=== PATIENT | male | born 1985 | race Caucasian/White ===

== ENCOUNTER 2016-12-09 00:05 | Emergency (ER) | payer OTHER ==
[2016-12-09] MEDS ORDERED: SODIUM CHLORIDE 0.9% 1,000 ML IV STA (00:42)
[2016-12-09] MEDS ORDERED: ONDANSETRON 4 MG/2 ML VIAL IVP STA (00:42)
[2016-12-09] MEDS ORDERED: MORPHINE SULFATE 2 MG/ML SYRINGE IVP STA (00:42)
--- NOTE | 2016-12-09 00:49 | ED ---
Abdominal Pain HPI - General Chief Complaint: Abdominal Pain Stated Complaint: right side pain Time Seen by Provider: 12/09/16 00:16 Source: patient, RN notes reviewed Mode of arrival: ambulatory Limitations: no limitations - History of Present Illness Initial Comments: Patient is a 30-year-old male chief complaint of sudden onset of right sided abdominal pain. Patient reports that he did feel some pain earlier this morning but to take one pain medication. Patient reports themedications wearing off this pain is starting again. Patient states that it is a gnawing sensation. He also reports that he had a chest x-ray from his primary care provider completed earlier this week. Due to the results of this chest x-ray and he stated that there was a mass in his epigastric and cardiac region that needs to have a CT of the chest. Patient reports that he has this planned for Saturday. Patient states that he has felt somewhat short of breath. He also states that he thinks that his pain is worse with movement.Patient denies any recent fever, chills, shortness of breath, chest pain, back pain, nausea vomiting, numbness or tingling, dysuria or hematuria, constipation or diarrhea, headaches or visual changes, or any other current symptoms - Related Data Home Medications Medication Instructions Recorded Confirmed Omeprazole [PriLOSEC] 1 tab PO DAILY 12/09/16 12/09/16 Allergies Allergy/AdvReac Type Severity Reaction Status Date / Time Penicillins AdvReac Rash/Hives Verified 12/09/16 00:11 Review of Systems ROS Statement: Those systems with pertinent positive or pertinent negative responses have been documented in the HPI. ROS Other: All systems not noted in ROS Statement are negative. Past Medical History Past Medical History: GERD/Reflux Additional Past Medical History / Comment(s): CHRONIC BACK, KNEE PAIN History of Any Multi-Drug Resistant Organisms: None Reported Past Surgical History: No Surgical Hx Reported Past Psychological History: No Psychological Hx Reported Smoking Status: Current every day smoker Past Alcohol Use History: Occasional Past Drug Use History: None Reported General Exam - General Exam Comments Initial Comments: 30-year-old male. No acute distress. Limitations: no limitations General appearance: alert, in no apparent distress Head exam: Present: atraumatic, normocephalic, normal inspection Eye exam: Present: normal appearance, PERRL, EOMI. Absent: scleral icterus, conjunctival injection, periorbital swelling ENT exam: Present: normal exam, normal oropharynx, mucous membranes moist Neck exam: Present: normal inspection. Absent: tenderness, meningismus, lymphadenopathy Respiratory exam: Present: normal lung sounds bilaterally. Absent: respiratory distress, wheezes, rales, rhonchi, stridor Cardiovascular Exam: Present: regular rate, normal rhythm, normal heart sounds. Absent: systolic murmur, diastolic murmur, rubs, gallop, clicks GI/Abdominal exam: Present: soft, tenderness (Right upper quadrant epigastric tenderness.), normal bowel sounds. Absent: distended, guarding, rebound, rigid Extremities exam: Present: normal inspection, full ROM, normal capillary refill. Absent: tenderness, pedal edema, joint swelling, calf tenderness Back exam: Present: normal inspection Neurological exam: Present: alert, oriented X3, CN II-XII intact Psychiatric exam: Present: normal affect, normal mood Skin exam: Present: warm, dry, intact, normal color. Absent: rash Course Vital Signs 12/09/16 12/09/16 00:07 02:09 Temperature 96.4 F L 98.3 F Pulse Rate 104 H 74 Respiratory 20 16 Rate Blood Pressure 134/78 118/66 O2 Sat by Pulse 96 98 Oximetry - Reevaluation(s) Reevaluation #1: 12/09/16 02:01 Patient was reevaluated and is resting comfortably at this time. Medical Decision Making - Medical Decision Making Patient is a 30-year-old male chief complaint of sudden onset of right sided abdominal pain. Patient reports that he did feel some pain earlier this morning but to take one pain medication. Patient reports themedications wearing off this pain is starting again. Patient states that it is a gnawing sensation. He also reports that he had a chest x-ray from his primary care provider completed earlier this week. Due to the results of this chest x-ray and he stated that there was a mass in his epigastric and cardiac region that needs to have a CT of the chest. Patient reports that he has this planned for Saturday morning. Patient states that he has felt somewhat short of breath. He also states that he thinks that his pain is worse with movement.Patient denies any recent fever, chills, shortness of breath, chest pain, back pain, nausea vomiting, numbness or tingling, dysuria or hematuria, constipation or diarrhea, headaches or visual changes, or any other current symptoms. Patient's chest x-ray and abdominal x-ray reviewed and negative for any acute process. Patient lab work is also negative for any acute findings. EKG was normal no ST elevation or T-wave inversion or atrial or ventricular arrhythmias. All of his cardiac enzymes are negative. I discussed all the findings with the patient's. Patient was reevaluated and palpated over the right upper quadrant pain there is no pain at this time. Patient will be discharged and instructed to follow-up with primary care provider. Patient agrees. He will be advised to follow-up with GI specialist as well. Return parameters were discussed. - Lab Data Result diagrams: 12/09/16 00:55 12/09/16 00:55 Lab Results 12/09/16 12/09/16 12/09/16 Range/Units 00:55 00:55 00:55 WBC 13.5 H (3.8-10.6) k/uL RBC 5.26 (4.30-5.90) m/uL Hgb 17.0 (13.0-17.5) gm/dL Hct 48.9 (39.0-53.0) % MCV 93.1 (80.0-100.0) fL MCH 32.3 (25.0-35.0) pg MCHC 34.7 (31.0-37.0) g/dL RDW 13.1 (11.5-15.5) % Plt Count 250 (150-450) k/uL Neutrophils % 77 % Lymphocytes % 16 % Monocytes % 5 % Eosinophils % 0 % Basophils % 0 % Neutrophils # 10.4 H (1.3-7.7) k/uL Lymphocytes # 2.2 (1.0-4.8) k/uL Monocytes # 0.6 (0-1.0) k/uL Eosinophils # 0.1 (0-0.7) k/uL Basophils # 0.0 (0-0.2) k/uL Sodium 143 (137-145) mmol/L Potassium 3.7 (3.5-5.1) mmol/L Chloride 108 H (98-107) mmol/L Carbon Dioxide 23 (22-30) mmol/L Anion Gap 12 mmol/L BUN 10 (9-20) mg/dL Creatinine 0.80 (0.66-1.25) mg/dL Est GFR (MDRD) Af Amer >60 (>60 ml/min/1.73 sqM) Est GFR (MDRD) Non-Af >60 (>60 ml/min/1.73 sqM) Glucose 90 (74-99) mg/dL Plasma Lactic Acid Dayday (0.7-2.0) mmol/L Calcium 9.9 (8.4-10.2) mg/dL Total Bilirubin 1.2 (0.2-1.3) mg/dL AST 28 (17-59) U/L ALT 47 (21-72) U/L Alkaline Phosphatase 76 (38-126) U/L Total Creatine Kinase 179 H (55-170) U/L CK-MB (CK-2) 0.4 (0.0-2.4) ng/mL CK-MB (CK-2) Rel Index 0.2 Troponin I <0.012 (0.000-0.034) ng/mL Total Protein 7.1 (6.3-8.2) g/dL Albumin 4.4 (3.5-5.0) g/dL Amylase 64 (30-110) U/L Lipase 143 (23-300) U/L Urine Color Urine Appearance (Clear) Urine pH (5.0-8.0) Ur Specific [place] (1.001-1.035) Urine Protein (Negative) Urine Glucose (UA) (Negative) Urine Ketones (Negative) Urine Blood (Negative) Urine Nitrite (Negative) Urine Bilirubin (Negative) Urine Urobilinogen (<2.0) mg/dL Ur Leukocyte Esterase (Negative) 12/09/16 12/09/16 Range/Units 00:55 01:00 WBC (3.8-10.6) k/uL RBC (4.30-5.90) m/uL Hgb (13.0-17.5) gm/dL Hct (39.0-53.0) % MCV (80.0-100.0) fL MCH (25.0-35.0) pg MCHC (31.0-37.0) g/dL RDW (11.5-15.5) % Plt Count (150-450) k/uL Neutrophils % % Lymphocytes % % Monocytes % % Eosinophils % % Basophils % % Neutrophils # (1.3-7.7) k/uL Lymphocytes # (1.0-4.8) k/uL Monocytes # (0-1.0) k/uL Eosinophils # (0-0.7) k/uL Basophils # (0-0.2) k/uL Sodium (137-145) mmol/L Potassium (3.5-5.1) mmol/L Chloride (98-107) mmol/L Carbon Dioxide (22-30) mmol/L Anion Gap mmol/L BUN (9-20) mg/dL Creatinine (0.66-1.25) mg/dL Est GFR (MDRD) Af Amer (>60 ml/min/1.73 sqM) Est GFR (MDRD) Non-Af (>60 ml/min/1.73 sqM) Glucose (74-99) mg/dL Plasma Lactic Acid Dayday 1.3 (0.7-2.0) mmol/L Calcium (8.4-10.2) mg/dL Total Bilirubin (0.2-1.3) mg/dL AST (17-59) U/L ALT (21-72) U/L Alkaline Phosphatase (38-126) U/L Total Creatine Kinase (55-170) U/L CK-MB (CK-2) (0.0-2.4) ng/mL CK-MB (CK-2) Rel Index Troponin I (0.000-0.034) ng/mL Total Protein (6.3-8.2) g/dL Albumin (3.5-5.0) g/dL Amylase (30-110) U/L Lipase (23-300) U/L Urine Color Yellow Urine Appearance Clear (Clear) Urine pH 6.5 (5.0-8.0) Ur Specific [place] 1.027 (1.001-1.035) Urine Protein Trace H (Negative) Urine Glucose (UA) Negative (Negative) Urine Ketones Trace H (Negative) Urine Blood Negative (Negative) Urine Nitrite Negative (Negative) Urine Bilirubin Negative (Negative) Urine Urobilinogen 4.0 (<2.0) mg/dL Ur Leukocyte Esterase Negative (Negative) 12/09/16 01:19 EKG shows normal sinus rhythm. No evidence of ST elevation or T-wave inversion. There is evidence of possible left atrial enlargement. Sugar 92 bpm. NC interval 122 ms. QRS duration 80 ms. QT/QTc is 336/4:15 SECONDS. - Radiology Data Radiology results: report reviewed PA and lateral views of the chest are obtained. Cardiomediastinal as well as a within normal limits. Lungs are clear. No focal consolidation. Pneumothorax or pleural effusion. Bony elements are within normal limits. KUB x-ray shows no radiographic evidence for any acute abdominal process. 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 Continue to take nausea medication. Return to the emergency department if any alarming signs or symptoms occur. Referrals: Anna Ocampo MD [Primary Care Provider] - 1-2 days Time of Disposition: 02:20
[2016-12-09 01:14] LABS: Basophils % (A) 0 %; CH 32.8; CHCM 35.4; Eosinophils # (A) 0.1 k/uL (0-0.7); Eosinophils % (A) 0 %; HCT 48.9 % (39.0-53.0); HDW 2.68; Luc # (Auto) 0.16; Luc % (Auto) 1; Lymphocytes # (A) 2.2 k/uL (1.0-4.8); Lymphocytes % (A) 16 %; MCH 32.3 pg (25.0-35.0); MCHC 34.7 g/dL (31.0-37.0); MCV 93.1 fL (80.0-100.0); Mean Platelet Volume 7.4; Monocytes # (A) 0.6 k/uL (0-1.0); Monocytes % (A) 5 %; Neutrophils # (A) 10.4 k/uL (1.3-7.7); Neutrophils % (A) 77 %; RBC 5.26 m/uL (4.30-5.90); RDW 13.1 % (11.5-15.5); WBC 13.5 k/uL (3.8-10.6)
[2016-12-09 01:18] LABS: Appearance,Urine Clear (Clear); Bilirubin,Urine Negative (Negative); Glucose,Urine (UA) Negative (Negative); Ketones,Urine Trace (Negative); Leukocyte Esterase,Urine Negative (Negative); Nitrite,Urine Negative (Negative); PH, Urine 6.5 (5.0-8.0); Protein,Urine Trace (Negative); Specific Gravity,Urine 1.027 (1.001-1.035); UA Billing (MACRO vs. MICRO) CHEM
[2016-12-09] MEDS ORDERED: MAG HYDROX/AL HYDROX/SIMETH 30 ML, HYOSCYAMINE ELIXIR 10 ML, CIMETIDINE HCL 300 MG, LID... PO STA ×4 (01:22)
--- NOTE | 2016-12-09 01:27 | XR ---
EXAM: XR KUB INDICATION: Abdominal pain. COMPARISON: None. FINDINGS: Single frontal view of the abdomen demonstrates a normal bowel gas pattern. No evidence of organomegaly, abnormal calcifications or obvious soft tissue masses. 4 mm round density projects over the right peripheral abdominal wall. The osseous structures are intact. IMPRESSION: No radiographic evidence for an acute abdominal process.
[2016-12-09 01:28] LABS: ALT 47 U/L (21-72); AST 28 U/L (17-59); Alkaline Phosphatase 76 U/L (38-126); Amylase 64 U/L (30-110); Anion Gap 12 mmol/L; Blood Urea Nitrogen 10 mg/dL (9-20); Calcium 9.9 mg/dL (8.4-10.2); Carbon Dioxide 23 mmol/L (22-30); Chloride 108 mmol/L (98-107); Glucose 90 mg/dL (74-99); Non-African American GFR(MDRD) >60 (>60 ml/min/1.73 sqM); Potassium 3.7 mmol/L (3.5-5.1); Sodium 143 mmol/L (137-145); Total Bilirubin 1.2 mg/dL (0.2-1.3); Total Protein 7.1 g/dL (6.3-8.2)
--- NOTE | 2016-12-09 01:28 | XR ---
Exam:XR CXR 2 VIEWS INDICATION: Abdominal pain. COMPARISON: 02/25/2016 chest radiographs FINDINGS: PA and lateral views of the chest are obtained. The cardiomediastinal silhouette is within normal limits. Lungs are clear. No focal consolidation, pneumothorax, or pleural effusion. Bony elements are within normal limits. IMPRESSION: No acute cardiopulmonary disease.
[2016-12-09 01:44] LABS: Creatine Kinase 179 U/L (55-170)
[2016-12-09 01:58] LABS: Creatine Kinase MB 0.4 ng/mL (0.0-2.4); Troponin I <0.012 ng/mL (0.000-0.034)
[2016-12-09 02:10] VITALS: RESP 16
[2016-12-09] MEDS ORDERED: ACET/COD 300 MG/30 MG STARTER PACK 6 TAB BTL PO STA (02:24)
[2016-12-09 02:41] VITALS: BP 129/77; PULSE 71; TEMP 98.1
== END 2016-12-09 02:40 | disposition home or self-care (01) ==
LOC: EC 00:05
DX: R10.13 Epigastric pain (principal); K21.9 Gastro-esophageal reflux disease without esophagitis; F17.200 Nicotine dependence, unspecified, uncomplicated; Z79.899 Other long term (current) drug therapy
CPT/HCPCS: 36415; 93005; 80053; 82150; 82550; 82553; 83605; 83690; 84484; 85025; 81003; 87040; 71020; 74000; 99284; 96374; 96375; 96361 ×2; J2405; J2270

== ENCOUNTER → 2016-12-10 | Outpatient (CLI) | payer OTHER ==
--- NOTE | 2016-12-10 08:14 | CT ---
EXAMINATION TYPE: CT chest wo con DATE OF EXAM: 12/10/2016 6:55 AM COMPARISON: NONE HISTORY: abnormal cxr CT DLP: 554.[address] of the chest was performed with lung and mediastinal window settings submitted. The la ck of contrast limits evaluation of the vascular, mediastinal and parenchymal structures including th e upper abdomen. LUNGS: The lungs are clear and free of infiltrate. No atelectasis. Tiny 3 mm nodular density right up per lobe image 28. Small subpleural nodular density right middle lobe image 37 measures 3 mm as well. 3 mm nodule lingula image 37. No pleural effusion. No CT evidence of interstitial lung disease. MEDIASTINUM/EMRE: Thoracic aorta is of normal caliber with limited evaluation given lack of contrast . The heart is not enlarged. No evidence for mediastinal mass. No lymph nodes greater than 1cm. UPPER ABDOMEN: No significant abnormality is seen. OTHER: No significant other abnormality. IMPRESSION: 1. Nonspecific low suspicion pulmonary nodularity. Consider a follow-up study in 12 months.
== END | disposition home or self-care (01) ==
LOC: RADXRMAIN 06:37
PROVIDERS: ATTEND Family Medicine
DX: R93.8 Abnormal findings on diagnostic imaging of other specified body structures (principal)
CPT/HCPCS: 71250

== ENCOUNTER → 2016-12-17 | Outpatient (CLI) | payer OTHER ==
--- NOTE | 2016-12-17 07:25 | US ---
EXAMINATION TYPE: US abdomen complete DATE OF EXAM: 12/17/2016 7:12 AM COMPARISON: NONE CLINICAL HISTORY: R10.9 abd pain,R12 HEART BURN. EXAM MEASUREMENTS: Liver Length: 16.3 cm Gallbladder Wall: 0.2 cm CBD: 0.4 cm Spleen: 9.6 cm Right Kidney: 9.8 x 5.2 x 5.5 cm Left Kidney: 10.8 x 4.5 x 7.0 cm Pancreas: tail obscured by bowel gas Liver: intercostal imaging due to bowel gas, wnl Gallbladder: appears slightly contracted, NPO 9 hours Evidence for sonographic Fierro's sign: no CBD: wnl Spleen: wnl Right Kidney: wnl Left Kidney: wnl Upper IVC: wnl Abd Aorta: wnl The pancreas is poorly visualized. Limited views of the liver appear unremarkable without biliary dil atation. The gallbladder is somewhat contracted. Gallbladder wall measures 2 mm. Distal common hepati c duct measures 4 mm. The spleen is normal in size. Both kidneys are normal. Visualized portions of aorta and IVC are normal. IMPRESSION: LIMITED EXAMINATION SHOWING NO ACUTE ABNORMALITY.
== END | disposition home or self-care (01) ==
LOC: RADUSWWP 06:50
PROVIDERS: ATTEND Family Medicine
DX: R10.9 Unspecified abdominal pain (principal); R12 Heartburn
CPT/HCPCS: 76700

== ENCOUNTER → 2017-01-01 | Outpatient (CLI) | payer OTHER | END | disposition home or self-care (01) | LOC: CPPFTMAIN 13:18 | PROVIDERS: ATTEND Family Medicine | DX: J98.8 Other specified respiratory disorders (principal) | CPT/HCPCS: 94060; 94726; 94729 ==

== ENCOUNTER → 2017-01-29 | Outpatient (CLI) | payer OTHER ==
--- NOTE | 2017-01-29 13:17 | EST ---
DATE OF SERVICE: 01/29/2017 AGE: 31Y SEX: M HT: 69 WT: 196 lbs. Protocol Ricardo: Other: Stage: 3 Dur. of Exercise: 10:00 *Heart Rate Blood Pressure *Rest: 87 Rest: 127/81 * *Max. Achieved: 174 Maximum BP: 165/64 85% PMHR: 160 100% PMHR: 188 *METS: 11.7 INDICATIONS: MEDICATIONS: Mr. Cruz is a 31-year-old gentleman being evaluated for symptoms of chest pain and shortness of breath. Baseline EKG showed sinus rhythm with normal OR interval and QRS duration. Blood pressure at rest is 127/81 with pulse of 87. EKGs taken during and after the exercise did not reveal any changes. Patient walked on the Ricardo protocol for about 10 minutes and 10 minutes achieving a maximum heart rate of 174 with blood pressure of 165/64. EKG did not reveal any acute changes. FINAL IMPRESSION: 1. Negative stress test. 2. Good exercise capacity. 3. No arrhythmias were detected. 4. Patient's exercise capacity is good.
--- NOTE | 2017-01-30 07:30 | ECHOF ---
Referral Reason:R06.02 sob MEASUREMENTS -------- HEIGHT: 175.3 cm WEIGHT: 88.9 kg BP: 118/71 RVIDd: 2.9 cm (< 3.3) IVSd: 1.2 cm (0.6 - 1.1) LVIDd: 4.1 cm (3.9 - 5.3) LVPWd: 1.2 cm (0.6 - 1.1) IVSs: 1.6 cm LVIDs: 3.3 cm LVPWs: 1.5 cm LA Diam: 2.9 cm (2.7 - 3.8) LAESV Index (A-L): 15.56 ml/m Ao Diam: 3.2 cm (2.0 - 3.7) AV Cusp: 2.6 cm (1.5 - 2.6) MV EXCURSION: 24.295 mm (> 18.000) MV EF SLOPE: 120 mm/s (70 - 150) EPSS: 0.3 cm MV E Frandy: 0.69 m/s MV DecT: 205 ms MV A Frandy: 0.58 m/s MV E/A Ratio: 1.19 RAP: 5.00 mmHg RVSP: 24.94 mmHg FINDINGS -------- Sinus rhythm. This was a technically good study. The left ventricular size is normal. There is borderline concentric left ventricular hypertrophy. Overall left ventricular systolic function is normal with, an EF between 60 - 65 %. The right ventricle is normal in size. Normal LA size by volume 22+/-6 ml/m2. The right atrium is normal in size. The aortic valve is trileaflet and appears structurally normal. The mitral valve is normal. Mild tricuspid regurgitation present. Right ventricular systolic pressure is normal at < 35 mmHg. Pulmonic valve appears structurally normal. The aortic root size is normal. Normal inferior vena cava with normal inspiratory collapse consistent with estimated right atrial pressure of 5 mmHg. The pericardium is normal. CONCLUSIONS -------- 1. Sinus rhythm. 2. The mitral valve is normal. 3. Mild tricuspid regurgitation present. 4. Right ventricular systolic pressure is normal at < 35 mmHg. 5. Pulmonic valve appears structurally normal. 6. The aortic root size is normal. 7. Normal inferior vena cava with normal inspiratory collapse consistent with estimated right atrial pressure of 5 mmHg. 8. The pericardium is normal. 9. This was a technically good study. 10. The left ventricular size is normal. 11. There is borderline concentric left ventricular hypertrophy. 12. Overall left ventricular systolic function is normal with, an EF between 60 - 65 %. 13. The right ventricle is normal in size. 14. Normal LA size by volume 22+/-6 ml/m2. 15. The right atrium is normal in size. 16. The aortic valve is trileaflet and appears structurally normal. PLATFORM LOADER: Eneida Freeman RDCS
== END | disposition home or self-care (01) ==
LOC: RADNMMAIN 11:09
PROVIDERS: ATTEND Family Medicine
DX: I07.1 Rheumatic tricuspid insufficiency (principal)
CPT/HCPCS: 93017; 93306

== ENCOUNTER → 2017-02-12 | Day surgery (SDC) | payer OTHER ==
[2017-02-07 14:07] VITALS: BMI 28.9
[~2017-02-12] MED LIST: LACTATED RINGERS 1,000 ML IV SCH
== END ==
LOC: ORWHC2ENDO 09:23
DX: K21.9 Gastro-esophageal reflux disease without esophagitis (principal)

== ENCOUNTER 2017-02-28 11:40 | Day surgery (SDC) | payer OTHER ==
[2017-02-26 12:00] VITALS: BMI 32.5
[~2017-02-28 11:40] MED LIST changes: +LIDOCAINE 1% 20 ML VIAL (10MG/ML) FOR IV START INTRADERMA PRN
[2017-02-28 13:06] VITALS: TEMP 97.6
[2017-02-28] MEDS ORDERED: PROPOFOL 10 MG/ML 20 ML VIAL IV ONE (14:29)
--- NOTE | 2017-02-28 14:52 | P.PCN ---
Date of Procedure: 02/28/17 Preoperative Diagnosis: Postoperative Diagnosis: Procedure(s) Performed: Procedure: Esophagogastroduodenoscopy and biopsy. Preoperative diagnosis: Chronic reflux symptoms and intermittent dysphagia. Postoperative diagnosis: 1. Small sliding hiatal hernia with no significant esophagitis or complicated reflux disease. 2. Mild gastritis and duodenitis. 3. Multiple biopsies obtained from the duodenum, antrum and esophagus. Preparation and sedation: Was provided by anesthesia. Brief clinical history: The patient is a 51-year-old male who I have evaluated in the office regarding chronic reflux and occasional dysphagia. No weight loss or other alarm symptoms. Procedure: With the patient on his left lateral decubitus position and after informed consent and adequate sedation, I passed the Olympus-GIF 160 video upper endoscope through the cricopharyngeus down the esophagus. GE junction was around 40 cm from the incisors and there was a small sliding hiatal hernia between 1 and 2 cm. The esophagus did not show any definite erosions. There were no ulcers. No strictures or Whiting's esophagus. The endoscope was then passed into the stomach which was insufflated with air and inspected in detail including the retroflex view in the cardia. There was some mottling and erythema in the antrum but no ulcers or erosions. Pyloric channel did not show any ulcers. Duodenal bulb, post bulbar area and descending duodenum showed mottling and erythema and submucosal hemorrhages but no ulcers or bleeding. I obtained biopsies from the duodenum, antrum and esophagus then the endoscope was withdrawn. The patient tolerated the procedure well. Plan: The patient was reassured. Will await pathology results and continue to optimize antireflux diet and measures and acid suppressive therapy. Further plans will be made based on his course and biopsy results. I will keep you updated on his progress. Implants: Indications for Procedure: Operative Findings: Description of Procedure:
[2017-02-28 15:01] VITALS: RESP 18
[2017-02-28 15:32] VITALS: BP 101/72; PULSE 56
== END 2017-02-28 15:40 | disposition home or self-care (01) ==
LOC: ORWHC2ENDO 11:40
DX: K21.0 Gastro-esophageal reflux disease with esophagitis (principal); K29.80 Duodenitis without bleeding; R13.10 Dysphagia, unspecified; K29.50 Unspecified chronic gastritis without bleeding; K44.9 Diaphragmatic hernia without obstruction or gangrene; B96.81 Helicobacter pylori [H. pylori] as the cause of diseases classified elsewhere; J44.9 Chronic obstructive pulmonary disease, unspecified; F17.200 Nicotine dependence, unspecified, uncomplicated; Z79.51 Long term (current) use of inhaled steroids; Z79.899 Other long term (current) drug therapy; Z88.0 Allergy status to penicillin
CPT/HCPCS: 88305; 88342; 45380; J2704

== ENCOUNTER → 2017-03-14 | Outpatient (CLI) | payer OTHER ==
--- NOTE | 2017-03-14 23:14 | MR ---
EXAMINATION TYPE: MR brain wo con DATE OF EXAM: 03/14/2017 COMPARISON: NONE HISTORY: Lightheadedness Standard multiplanar, multisequence MRI departmental protocol Multiplanar, multisequence images of the brain were acquired. Diffusion weighted imaging was performe d. FINDINGS: Ventricles and sulci appear fairly normal. There is no mass effect nor midline shift. There is no sign of intracranial hemorrhage. Valentin-white matter structures have normal signal pattern. Ther e is no evidence of cerebral edema. There is no sign of an infarct. Brainstem is intact. Sella turcic a appears normal. Corpus callosum appears normal. IMPRESSION: MR scan of the brain is within normal limits.
== END | disposition home or self-care (01) ==
LOC: RADMRIMAIN 21:24
PROVIDERS: ATTEND Family Medicine
DX: R42 Dizziness and giddiness (principal)
CPT/HCPCS: 70551

== ENCOUNTER → 2017-03-18 | Outpatient (CLI) | payer OTHER ==
--- NOTE | 2017-03-19 07:57 | US ---
EXAMINATION TYPE: US carotid duplex BILAT DATE OF EXAM: 03/18/2017 COMPARISON: NONE CLINICAL HISTORY: R42 Lightheadedness. Pt states feeling lightheaded and dizziness EXAM MEASUREMENTS: RIGHT: Peak Systolic Velocity (PSV) cm/sec ----- Right CCA: 144 ----- Right ICA: 140 ----- Right ECA: 124 ICA/CCA ratio: 1.0 RIGHT: End Diastole cm/sec ----- Right CCA: 36.0 ----- Right ICA: 27.5 ----- Right ECA: 29.2 LEFT: Peak Systolic Velocity (PSV) cm/sec ----- Left CCA: 130 ----- Left ICA: 98.1 ----- Left ECA: 141 ICA/CCA ratio: 0.8 LEFT: End Diastole cm/sec ----- Left CCA: 31.4 ----- Left ICA: 29.9 ----- Left ECA: 24.5 VERTEBRALS (direction of flow): Right Vertebral: Antegrade Left Vertebral: Antegrade No significant stenosis seen IMPRESSION: There is antegrade flow in the vertebral arteries. The images and measurements suggest 50-70% stenosis in the right internal carotid artery and also in the left common carotid artery. Criteria for Assigning % of Stenosis / Diameter reduction (Estimation based on the indirect measurements of the internal carotid artery velocities (ICA PSV). 1. Normal (no stenosis)=ICA PSV < 125 cm/s: ratio < 2.0: ICA EDV<40 cm/s. 2. Less than 50% stenosis=ICA PSV < 125 cm/s: ratio < 2.0: ICA EDV<40 cm/s. 3. 50 to 69% stenosis=ICA PSV of 125 to 230 cm/s: ration 2.0 ? 4.0: ICA EDV 40-100 cm/s. 4. Greater than 70% stenosis to near occlusion= ICA PSV > 230 cm/s: ratio > 4.0: ICA EDV > 100 cm/s. 5. Near occlusion= ICA PSV velocities may be low or undetectable: variable ratio and ICA EDV. 6. Total occlusion=unable to detect flow.
== END | disposition home or self-care (01) ==
LOC: RADUSWWP 15:36
PROVIDERS: ATTEND Family Medicine
DX: R42 Dizziness and giddiness (principal)
CPT/HCPCS: 93880

== ENCOUNTER → 2017-05-03 | Outpatient (CLI) | payer OTHER ==
--- NOTE | 2017-05-03 11:39 | FL ---
EXAMINATION TYPE: FL barium swallow w video DATE OF EXAM: 05/03/2017 COMPARISON: NONE HISTORY: Dysphagia, food getting stuck. TECHNIQUE: Fluoroscopy. FINDINGS: Fluoroscopic guidance was provided for the procedure performed in conjunction with the [facility] pathology department. Please see complete report forthcoming from the Speech Pathology departmen t. Various consistencies from thin liquid to solids were administered. Fluoroscopy time 0.59 minutes. Number of images 0. No aspiration or penetration was evident. No significant pooling was observed in the vallecula. There was normal propulsion of the bolus. IMPRESSION: 1. Normal modified barium swallow.
== END | disposition home or self-care (01) ==
LOC: RADFLMAIN 10:37
PROVIDERS: ATTEND Otolaryngology Facial Plastic Surgery
DX: R13.12 Dysphagia, oropharyngeal phase (principal)
CPT/HCPCS: 74230

== ENCOUNTER → 2017-05-07 | Outpatient (CLI) | payer OTHER ==
--- NOTE | 2017-05-07 12:11 | FL ---
ESOPHOGRAM. HISTORY: Dysphagia Esophagram was performed per the air contrast technique. The patient swallowed barium and effervesce nt crystals without difficulty or delay. Esophageal peristalsis and motility appear to be within normal limits. There is no evidence for filling defect, mass or diverticulum. No hiatal hernia seen. Subsequently single contrast cervical esophagram was performed which fails demonstrate evidence for a spiration penetration or mass. IMPRESSION: Unremarkable study.
== END | disposition home or self-care (01) ==
LOC: RADFLMAIN 10:37
PROVIDERS: ATTEND Otolaryngology Facial Plastic Surgery
DX: R13.12 Dysphagia, oropharyngeal phase (principal)
CPT/HCPCS: 74220

== ENCOUNTER 2017-11-25 20:02 | Emergency (ER) | payer OTHER ==
--- NOTE | 2017-11-25 22:06 | ED ---
General Adult HPI - General Chief complaint: ENT Stated complaint: left side sternum pain/ear congstion Time Seen by Provider: 11/25/17 21:52 Source: patient, RN notes reviewed Mode of arrival: ambulatory Limitations: no limitations - History of Present Illness Initial comments: 31-year-old male patient presents to the emergency department for chief complaint of chest pain for the past 3 days. He says it is intermittent and lasts for about 15 minutes. He describes the pain as a stabbing pain in the left side of his chest. Patient states the pain does not radiate into an arm or other side of his chest. Patient states he is not short of breath or diaphoretic. Patient is a smoker but denies a history of asthma or COPD. Patient denies any abdominal pain. Patient also complains of left-sided ear pain for the past week. Patient describes this pain as a shooting pain in his left ear. Denies any tenderness of the neck or tragus of the ear. No tenderness of the mastoid process. Patient has slight loss of sensation of the left side of his face near his ear. All cranial nerves are intact. Patient denies any change in vision, swallowing, or speech. - Related Data Home Medications Medication Instructions Recorded Confirmed Varenicline [Chantix Starter Pack] 0.5 mg PO BID 11/25/17 11/25/17 Previous Rx's Medication Instructions Recorded Azithromycin [Zithromax Z-pack] 250 mg PO DIRECTED #6 tab 11/26/17 Fluticasone Nasal [place] [Flonase 1 spray EA NOSTRIL DAILY #1 bottle 11/26/17 Nasal [place]] Loratadine [Claritin] 10 mg PO DAILY #10 tab 11/26/17 Allergies Allergy/AdvReac Type Severity Reaction Status Date / Time Penicillins Allergy Rash/Hives Verified 11/25/17 21:47 Review of Systems ROS Statement: Those systems with pertinent positive or pertinent negative responses have been documented in the HPI. ROS Other: All systems not noted in ROS Statement are negative. Past Medical History Past Medical History: Asthma, Chest Pain / Angina, GERD/Reflux Additional Past Medical History / Comment(s): migraines, History of Any Multi-Drug Resistant Organisms: None Reported Past Surgical History: No Surgical Hx Reported Additional Past Surgical History / Comment(s): WISDOM TEETH REMOVED UNDER ANESTHESIA Past Anesthesia/Blood Transfusion Reactions: No Reported Reaction Past Psychological History: Anxiety Smoking Status: Current some day smoker Past Alcohol Use History: Occasional Past Drug Use History: None Reported - Past Family History Mother Family Medical History: No Reported History General Exam Limitations: no limitations General appearance: alert, in no apparent distress Head exam: Present: atraumatic, normocephalic, normal inspection Eye exam: Present: normal appearance, PERRL, EOMI. Absent: scleral icterus, conjunctival injection, periorbital swelling ENT exam: Present: normal exam, mucous membranes moist. Absent: TM's normal bilaterally (slightly erythematous left tympanic membrane) Neck exam: Present: normal inspection. Absent: tenderness, meningismus, lymphadenopathy Respiratory exam: Present: normal lung sounds bilaterally. Absent: respiratory distress, wheezes, rales, rhonchi, stridor Cardiovascular Exam: Present: regular rate, normal rhythm, normal heart sounds, other (Chest pain nonreproducible upon palpation). Absent: systolic murmur, diastolic murmur, rubs, gallop, clicks Skin exam: Present: warm, dry, intact, normal color. Absent: rash Course Vital Signs 11/25/17 11/25/17 20:31 23:37 Temperature 98.9 F Pulse Rate 104 H 97 Respiratory 18 18 Rate Blood Pressure 113/66 120/65 O2 Sat by Pulse 96 97 Oximetry Medical Decision Making - Medical Decision Making 31-year-old male presents to the emergency department with a chief complaint of chest pain. Patient states the pain is intermittent and lasts for 15 minutes. It is nonpleuritic and non-reproducible. Patient states he is not short of breath nor diaphoretic. Patient says this has been going on for the past few days. An EKG was ordered and no acute abnormalities were noted. A chest x-ray also showed no acute abnormalities. No fever noted on vitals. Patient denies congestion, cough, urinary symptoms. Patient's CBC did show a white count of 13 and neutrophils 10.3. Vitals showed no fever. Troponin and cardiac panel came back within normal limits. CMP was also within normal limits. Patient currently denies pain in his chest and is feeling much better. Patient also has pain in the left ear for about a week. Patient states it started when he fell but she was hearing underwater and symptoms progressed to a shooting pain in the left ear. Patient states his hearing feels slightly muffled in the ear. No lymph nodes were noted on palpation. Patient does not have tenderness with palpation of the tragus, pinna, or mastoid process. Patient does have an elevated white count so will be treated for an otitis media with azithromycin as he is penicillin ALLERGIC. He will also be given a nasal spray and Claritin. - Lab Data Result diagrams: 11/25/17 22:37 11/25/17 22:37 Lab Results 11/25/17 11/25/17 11/25/17 Range/Units 22:37 22:37 22:37 WBC 13.1 H (3.8-10.6) k/uL RBC 5.88 (4.30-5.90) m/uL Hgb 18.4 H (13.0-17.5) gm/dL Hct 53.8 H (39.0-53.0) % MCV 91.4 (80.0-100.0) fL MCH 31.3 (25.0-35.0) pg MCHC 34.3 (31.0-37.0) g/dL RDW 13.2 (11.5-15.5) % Plt Count 286 (150-450) k/uL Neutrophils % 78 % Lymphocytes % 14 % Monocytes % 5 % Eosinophils % 2 % Basophils % 1 % Neutrophils # 10.3 H (1.3-7.7) k/uL Lymphocytes # 1.8 (1.0-4.8) k/uL Monocytes # 0.6 (0-1.0) k/uL Eosinophils # 0.2 (0-0.7) k/uL Basophils # 0.1 (0-0.2) k/uL PT (9.0-12.0) sec INR (<1.2) APTT (22.0-30.0) sec Sodium 139 (137-145) mmol/L Potassium 4.4 (3.5-5.1) mmol/L Chloride 105 (98-107) mmol/L Carbon Dioxide 23 (22-30) mmol/L Anion Gap 11 mmol/L BUN 10 (9-20) mg/dL Creatinine 0.80 (0.66-1.25) mg/dL Est GFR (CKD-EPI)AfAm >90 (>60 ml/min/1.73 sqM) Est GFR (CKD-EPI)NonAf >90 (>60 ml/min/1.73 sqM) Glucose 82 (74-99) mg/dL Calcium 10.1 (8.4-10.2) mg/dL Magnesium 2.3 (1.6-2.3) mg/dL Total Bilirubin 1.5 H (0.2-1.3) mg/dL AST 26 (17-59) U/L ALT 37 (21-72) U/L Alkaline Phosphatase 72 (38-126) U/L Total Creatine Kinase 92 (55-170) U/L CK-MB (CK-2) 0.3 (0.0-2.4) ng/mL CK-MB (CK-2) Rel Index 0.3 Troponin I <0.012 (0.000-0.034) ng/mL Total Protein 7.8 (6.3-8.2) g/dL Albumin 4.5 (3.5-5.0) g/dL 11/25/17 Range/Units 22:37 WBC (3.8-10.6) k/uL RBC (4.30-5.90) m/uL Hgb (13.0-17.5) gm/dL Hct (39.0-53.0) % MCV (80.0-100.0) fL MCH (25.0-35.0) pg MCHC (31.0-37.0) g/dL RDW (11.5-15.5) % Plt Count (150-450) k/uL Neutrophils % % Lymphocytes % % Monocytes % % Eosinophils % % Basophils % % Neutrophils # (1.3-7.7) k/uL Lymphocytes # (1.0-4.8) k/uL Monocytes # (0-1.0) k/uL Eosinophils # (0-0.7) k/uL Basophils # (0-0.2) k/uL PT 9.9 (9.0-12.0) sec INR 1.0 (<1.2) APTT 27.0 (22.0-30.0) sec Sodium (137-145) mmol/L Potassium (3.5-5.1) mmol/L Chloride (98-107) mmol/L Carbon Dioxide (22-30) mmol/L Anion Gap mmol/L BUN (9-20) mg/dL Creatinine (0.66-1.25) mg/dL Est GFR (CKD-EPI)AfAm (>60 ml/min/1.73 sqM) Est GFR (CKD-EPI)NonAf (>60 ml/min/1.73 sqM) Glucose (74-99) mg/dL Calcium (8.4-10.2) mg/dL Magnesium (1.6-2.3) mg/dL Total Bilirubin (0.2-1.3) mg/dL AST (17-59) U/L ALT (21-72) U/L Alkaline Phosphatase (38-126) U/L Total Creatine Kinase (55-170) U/L CK-MB (CK-2) (0.0-2.4) ng/mL CK-MB (CK-2) Rel Index Troponin I (0.000-0.034) ng/mL Total Protein (6.3-8.2) g/dL Albumin (3.5-5.0) g/dL Disposition Clinical Impression: Otitis media, Atypical chest pain Disposition: HOME SELF-CARE Instructions: Earache (ED), Otitis Media (ED), Chest Pain (ED) Additional Instructions: If chest pain worsens or you begai to feel short of breath please return to the emergency department. If ear pain worsens he should also return to the emergency department. Take antibiotics and use nasal spray as directed. Please follow up with primary care provider within one to 2 days. Prescriptions: Azithromycin [Zithromax Z-pack] 250 mg PO DIRECTED #6 tab Fluticasone Nasal [place] [Flonase Nasal Averill] 1 spray EA NOSTRIL DAILY #1 bottle Loratadine [Claritin] 10 mg PO DAILY #10 tab Referrals: Anna Ocampo MD [Primary Care Provider] - 1-2 days Time of Disposition: 00:08
[2017-11-25 22:49] LABS: Basophils # (A) 0.1 k/uL (0-0.2); Basophils % (A) 1 %; Eosinophils # (A) 0.2 k/uL (0-0.7); Eosinophils % (A) 2 %; HCT 53.8 % (39.0-53.0); HGB 18.4 gm/dL (13.0-17.5); Lymphocytes # (A) 1.8 k/uL (1.0-4.8); Lymphocytes % (A) 14 %; MCH 31.3 pg (25.0-35.0); MCHC 34.3 g/dL (31.0-37.0); MCV 91.4 fL (80.0-100.0); Mean Platelet Volume 7.4; Monocytes # (A) 0.6 k/uL (0-1.0); Monocytes % (A) 5 %; Neutrophils # (A) 10.3 k/uL (1.3-7.7); Neutrophils % (A) 78 %; Platelet Count 286 k/uL (150-450); RBC 5.88 m/uL (4.30-5.90); RDW 13.2 % (11.5-15.5); WBC 13.1 k/uL (3.8-10.6)
--- NOTE | 2017-11-25 22:52 | XR ---
EXAMINATION TYPE: XR chest 2V DATE OF EXAM: 11/25/2017 COMPARISON: 12/09/2016 HISTORY: Chest pain TECHNIQUE: Frontal and lateral views of the chest are obtained. FINDINGS: Heart and mediastinum are normal. Lungs are clear. Diaphragm is normal. Bony thorax is int act. IMPRESSION: Normal chest. No change.
[2017-11-25 23:25] LABS: ALT 37 U/L (21-72); AST 26 U/L (17-59); Albumin 4.5 g/dL (3.5-5.0); Alkaline Phosphatase 72 U/L (38-126); Anion Gap 11 mmol/L; Blood Urea Nitrogen 10 mg/dL (9-20); Calcium 10.1 mg/dL (8.4-10.2); Carbon Dioxide 23 mmol/L (22-30); Chloride 105 mmol/L (98-107); Glucose 82 mg/dL (74-99); Magnesium 2.3 mg/dL (1.6-2.3); Potassium 4.4 mmol/L (3.5-5.1); Sodium 139 mmol/L (137-145); Total Bilirubin 1.5 mg/dL (0.2-1.3); Total Protein 7.8 g/dL (6.3-8.2)
[2017-11-25 23:28] LABS: Creatine Kinase 92 U/L (55-170)
[2017-11-25 23:29] LABS: Prothrombin Time 9.9 sec (9.0-12.0)
[2017-11-25 23:40] LABS: Creatine Kinase MB 0.3 ng/mL (0.0-2.4); Troponin I <0.012 ng/mL (0.000-0.034)
[2017-11-26 00:09] VITALS: BP 122/78; PULSE 78; RESP 16; TEMP 98
== END 2017-11-26 00:19 | disposition home or self-care (01) ==
LOC: EC 20:02
DX: H66.92 Otitis media, unspecified, left ear (principal); R07.89 Other chest pain; F17.200 Nicotine dependence, unspecified, uncomplicated; Z79.899 Other long term (current) drug therapy; Z88.0 Allergy status to penicillin
CPT/HCPCS: 36415; 71046; 80053; 82550; 82553; 83735; 84484; 85025; 85610; 85730; 93005; 99285

== ENCOUNTER → 2017-12-05 | Outpatient (CLI) | payer OTHER ==
--- NOTE | 2017-12-05 13:22 | CT ---
EXAMINATION TYPE: CT chest wo con DATE OF EXAM: 12/05/2017 COMPARISON: 12/10/2016 HISTORY: Shortness of breath CT DLP: 374.8 mGycm. Automated Exposure Control for Dose Reduction was Utilized. TECHNIQUE: CT scan of the thorax is performed without IV contrast. FINDINGS: LUNGS: There is redemonstration of a 2 to 3 mm right upper lobe pulmonary nodule on series 4 image 29 , unchanged from the prior of 12/10/2016. The approximately 6 mm area of pleural thickening within the right middle lobe is favored to be unchanged from the prior although better visualized on today's ex amination and slice selection on image 39. Within the lingula there is an unchanged 3 mm pulmonary no dule on image 35. Minimal bibasilar subsegmental dependent atelectasis is noted. The lungs are grossl y clear, there is no concerning parenchymal mass or nodule identified. There is no pleural effusion or pneumothorax seen. The tracheobronchial tree is patent. MEDIASTINUM: Lack of IV contrast is noted to limit evaluation for mediastinal and especially hilar ad enopathy. There are no definitive greater than 1 cm hilar or mediastinal lymph nodes. No cardiomega ly or pericardial effusion is seen. OTHER: No additional significant abnormality is seen. IMPRESSION: Unchanged bilateral pulmonary nodules and similar appearing right middle lobe pleural thi ckening in comparison to the exam of 12/10/2016. Additional follow-up CT in 12 months is recommended t o establish 2 years of stability. At that time if these nodules are unchanged a could be considered b enign.
== END ==
LOC: RADCTMAIN 12:42
PROVIDERS: ATTEND Internal Medicine
DX: R06.02 Shortness of breath (principal)
CPT/HCPCS: 71250

== ENCOUNTER → 2017-12-06 | Outpatient (CLI) | payer OTHER ==
--- NOTE | 2017-12-06 15:29 | CT ---
EXAMINATION TYPE: CT sinus wo con DATE OF EXAM: 12/06/2017 COMPARISON: NONE HISTORY: Chronic sinusitis CT DLP: 586 mGycm. Automated Exposure Control for Dose Reduction was Utilized. TECHNIQUE: CT scan of the sinuses is performed without contrast, axial images are obtained, coronal r eformatted images are also reviewed. FINDINGS: There is severe mucosal thickening involving the maxillary sinuses bilaterally with occlusi on of the ostiomeatal complex. Moderate mucosal thickening involving the ethmoid air cells. Nasal septal deviation seen. Sphenoid si nus and frontal sinus demonstrate no significant sinus changes. Oropharynx and nasopharynx are symmetric. Intraorbital and intracranial structures are symmetric. Mastoid air cells have a normal appearance. IMPRESSION: 1. Moderate to severe chronic sinusitis involving the maxillary sinuses and ethmoid air cells.
== END | disposition home or self-care (01) ==
LOC: RADCTMAIN 14:10
PROVIDERS: ATTEND Otolaryngology Facial Plastic Surgery
DX: J32.0 Chronic maxillary sinusitis (principal); J32.2 Chronic ethmoidal sinusitis
CPT/HCPCS: 70486

== ENCOUNTER → 2018-02-04 | Outpatient (CLI) | payer OTHER ==
[2018-02-04 15:51] LABS: ALT 66 U/L (21-72); AST 32 U/L (17-59); Cholesterol 197 mg/dL (<200); HDL Cholesterol 42 mg/dL (40-60); LDL Cholesterol,Calculated 120 mg/dL (0-99); Triglycerides 173 mg/dL (<150)
== END | disposition home or self-care (01) ==
LOC: LABWHC1 14:45
PROVIDERS: ATTEND Internal Medicine Cardiovascular Disease
DX: E78.5 Hyperlipidemia, unspecified (principal)
CPT/HCPCS: 36415; 80061; 84450; 84460

== ENCOUNTER 2018-04-29 10:54 | Emergency (ER) | payer OTHER ==
--- NOTE | 2018-04-29 11:28 | ED ---
General Adult HPI - General Chief complaint: Extremity Injury, Lower Stated complaint: ankle pain Time Seen by Provider: 04/29/18 11:10 Source: patient, RN notes reviewed Mode of arrival: wheelchair Limitations: no limitations - History of Present Illness Initial comments: Patient 32-year-old male presented to the emergency room today with chief complaint of right ankle pain over the last 2 days. Patient does admit that he was drinking over the weekend is unsure exactly how he injured her right ankle but does admit that he has pain with ambulation. Patient denies any other injuries or complaints. Patient denies any recent fever, chills, shortness of breath, chest pain, back pain, abdominal pain, nausea or vomiting, numbness or tingling, headaches or visual changes, or any other complaints. - Related Data Home Medications Medication Instructions Recorded Confirmed Albuterol Inhaler [Ventolin Hfa 2 puff INHALATION RT-Q6H PRN 04/29/18 04/29/18 Inhaler] Beclomethasone Dipropionate [Qvar 2 puff INHALATION RT-BID 04/29/18 04/29/18 80 mcg] Divalproex Sodium [Depakote ER] 250 mg PO DAILY 04/29/18 04/29/18 Montelukast [Singulair] 10 mg PO DAILY 04/29/18 04/29/18 Omeprazole 20 mg PO BID 04/29/18 04/29/18 Previous Rx's Medication Instructions Recorded Loratadine [Claritin] 10 mg PO DAILY #10 tab 11/26/17 Ibuprofen [Motrin] 600 mg PO Q6HR PRN #40 day 04/29/18 Allergies Allergy/AdvReac Type Severity Reaction Status Date / Time Penicillins Allergy Rash/Hives Verified 04/29/18 11:23 Review of Systems ROS Statement: Those systems with pertinent positive or pertinent negative responses have been documented in the HPI. ROS Other: All systems not noted in ROS Statement are negative. Past Medical History Past Medical History: Asthma, Chest Pain / Angina, GERD/Reflux Additional Past Medical History / Comment(s): migraines, History of Any Multi-Drug Resistant Organisms: None Reported Past Surgical History: No Surgical Hx Reported Additional Past Surgical History / Comment(s): WISDOM TEETH REMOVED UNDER ANESTHESIA Past Anesthesia/Blood Transfusion Reactions: No Reported Reaction Past Psychological History: Anxiety Smoking Status: Current some day smoker Past Alcohol Use History: Occasional Past Drug Use History: None Reported - Past Family History Mother Family Medical History: No Reported History General Exam - General Exam Comments Initial Comments: General: The patient is awake and alert, in no distress, and does not appear acutely ill. Neck: The neck is supple, there is no tenderness or JVD. Musculoskeletal: Normal appearance of the right ankle no obvious deformity. Patient does have tenderness in the ATFL area. No bony tenderness to the right knee, lateral, medial malleolus, or counter the right foot. Sensations intact. Pedal pulse 2+. Strength 5/5 Neurological: A&O x 3. CN II-XII intact, There are no obvious motor or sensory deficits. Coordination appears grossly intact. Speech is normal. Skin: Skin is warm and dry and no rashes or lesions are noted. Psychiatric: Normal mood and affect. Limitations: no limitations Course Vital Signs 04/29/18 11:11 Temperature 98.2 F Pulse Rate 86 Respiratory 20 Rate Blood Pressure 133/67 O2 Sat by Pulse 96 Oximetry Medical Decision Making - Medical Decision Making Patient's x-rays reviewed of the right ankle and right foot show no fracture dislocation. Advised patient most likely ankle sprain. Will be given an [employer] material emergency room and advised follow-up with family doctor or orthopedics in 7-10 days if symptoms persist for further evaluation. Advised ice elevate affected area. Disposition Clinical Impression: Ankle sprain Disposition: HOME SELF-CARE Condition: Good Instructions: Ankle Sprain (ED) Additional Instructions: Please continue to ice elevate the affected area at least 4 times a day for 20 minutes at a time. Please use Tylenol/ibuprofen for pain. Please follow-up in 7-10 days for repeat x-rays if symptoms persist. Please return to emergency room for any other concerns. Prescriptions: Ibuprofen [Motrin] 600 mg PO Q6HR PRN #40 day PRN Reason: Pain Is patient prescribed a controlled substance at d/c from ED?: No Referrals: Anna Ocampo MD [Primary Care Provider] - 1-2 days Mohamud Mirza MD [STAFF PHYSICIAN] - 1-2 days Time of Disposition: 12:03
--- NOTE | 2018-04-29 11:34 | XR ---
EXAMINATION TYPE: XR ankle complete RT, XR foot complete RT DATE OF EXAM: 04/29/2018 CLINICAL HISTORY: Pain and swelling TECHNIQUE: Frontal, lateral and oblique images of the right ankle and foot are obtained. COMPARISON: None. FINDINGS: There is no acute fracture/dislocation evident in the right ankle. The ankle mortise appe ars within normal limits. Mild soft tissue swelling over lateral malleolus is present. There is no acute fracture or dislocation evident in the right foot. Slight hallux valgus positioning first toe is present. Flexion in toes is noted. Overlying soft tissue is unremarkable. IMPRESSION: There is no acute fracture or dislocation in the right ankle or foot.
[2018-04-29 12:15] VITALS: BP 133/77; PULSE 81; RESP 16; TEMP 98.1
== END 2018-04-29 12:11 | disposition home or self-care (01) ==
LOC: EC 10:54
DX: S93.401A Sprain of unspecified ligament of right ankle, initial encounter (principal); J45.909 Unspecified asthma, uncomplicated; K21.9 Gastro-esophageal reflux disease without esophagitis; F17.200 Nicotine dependence, unspecified, uncomplicated; Z79.51 Long term (current) use of inhaled steroids; Z79.899 Other long term (current) drug therapy; Z88.0 Allergy status to penicillin; Z86.69 Personal history of other diseases of the nervous system and sense organs; X58.XXXA Exposure to other specified factors, initial encounter
CPT/HCPCS: 99283

== ENCOUNTER 2018-06-03 23:48 | Emergency (ER) | payer OTHER ==
[2018-06-03 23:54] VITALS: BP 125/77; PULSE 100; RESP 20; TEMP 98.6
[2018-06-04] MEDS ORDERED: LIDOCAINE 1% INJ 10MG/ML (20 ML MDV) SQ ONE (00:13)
--- NOTE | 2018-06-04 00:17 | ED ---
Wound/Laceration HPI - General Source: patient, RN notes reviewed Mode of arrival: ambulatory Limitations: no limitations <Jameson Boswell - Last Filed: 06/04/18 00:34> <Yaritza Davis - Last Filed: 06/04/18 03:16> - General Chief Complaint: Wound/Laceration Stated Complaint: Eyebrow Laceration Time Seen by Provider: 06/04/18 00:04 - History of Present Illness Initial Comments: 32-year-old male presents emergency Department with chief complaint of laceration. Patient states that he was at work trying to get a metal bar unstuck and states that it flung back striking him and his forehead. He did not lose consciousness. He states he initially had a headache perch is improving. Patient denies any blurred vision, neck pain, dizziness, shortness of breath. Patient states that his tetanus is up-to-date within last 6 months. Patient offers no other complaints this time. (Jameson Boswell) - Related Data Home Medications Medication Instructions Recorded Confirmed Albuterol Inhaler [Ventolin Hfa 2 puff INHALATION RT-Q6H PRN 04/29/18 04/29/18 Inhaler] Beclomethasone Dipropionate [Qvar 2 puff INHALATION RT-BID 04/29/18 04/29/18 80 mcg] Divalproex Sodium [Depakote ER] 250 mg PO DAILY 04/29/18 04/29/18 Montelukast [Singulair] 10 mg PO DAILY 04/29/18 04/29/18 Omeprazole 20 mg PO BID 04/29/18 04/29/18 Previous Rx's Medication Instructions Recorded Loratadine [Claritin] 10 mg PO DAILY #10 tab 11/26/17 Ibuprofen [Motrin] 600 mg PO Q6HR PRN #40 day 04/29/18 Allergies Allergy/AdvReac Type Severity Reaction Status Date / Time Penicillins Allergy Rash/Hives Verified 06/03/18 23:54 Review of Systems ROS Other: All systems not noted in ROS Statement are negative. <Jameson Boswell - Last Filed: 06/04/18 00:34> ROS Other: All systems not noted in ROS Statement are negative. <Yaritza Davis - Last Filed: 06/04/18 03:16> ROS Statement: Those systems with pertinent positive or pertinent negative responses have been documented in the HPI. Past Medical History Past Medical History: Asthma, Chest Pain / Angina, GERD/Reflux Additional Past Medical History / Comment(s): migraines, History of Any Multi-Drug Resistant Organisms: None Reported Past Surgical History: No Surgical Hx Reported Additional Past Surgical History / Comment(s): WISDOM TEETH REMOVED UNDER ANESTHESIA Past Anesthesia/Blood Transfusion Reactions: No Reported Reaction Past Psychological History: Anxiety Smoking Status: Current some day smoker Past Alcohol Use History: Occasional Past Drug Use History: None Reported - Past Family History Mother Family Medical History: No Reported History <Jameson Boswell - Last Filed: 06/04/18 00:34> General Exam Limitations: no limitations General appearance: alert, in no apparent distress Head exam: Present: atraumatic, normocephalic. Absent: normal inspection ( Right side of forehead there is a 3 cm laceration) Eye exam: Present: normal appearance, PERRL, EOMI. Absent: scleral icterus, conjunctival injection, periorbital swelling ENT exam: Present: normal exam, normal oropharynx, mucous membranes moist, TM's normal bilaterally Neck exam: Present: normal inspection, full ROM. Absent: tenderness, meningismus, lymphadenopathy Respiratory exam: Present: normal lung sounds bilaterally. Absent: respiratory distress, wheezes, rales, rhonchi, stridor Cardiovascular Exam: Present: regular rate, normal rhythm, normal heart sounds. Absent: systolic murmur, diastolic murmur, rubs, gallop, clicks Neurological exam: Present: alert, oriented X3, CN II-XII intact, reflexes normal, other (Finger to nose intact bilaterally without shooting). Absent: motor sensory deficit <Jameson Boswell - Last Filed: 06/04/18 00:34> Vital Signs 06/03/18 23:51 Temperature 98.6 F Pulse Rate 100 Respiratory 20 Rate Blood Pressure 125/77 O2 Sat by Pulse 97 Oximetry Procedures - Laceration Laceration #1 Consent Obtained: verbal consent Indication: laceration Site: face Size (cm): 3 Description: linear Depth: simple, single layer Anesthetic Used: lidocaine 1%, without epi Anesthesia Technique: local infiltration Amount (mls): 4 Pre-repair: wound explored, irrigated extensively, deep structures intact Type of Sutures: nylon Size of Sutures: 6-0 Number of Sutures: 5 Technique: simple, interrupted Patient Tolerated Procedure: well, no complications <Jameson Boswell - Last Filed: 06/04/18 00:34> Medical Decision Making <Jameson Boswell - Last Filed: 06/04/18 00:34> <Yaritza Davis - Last Filed: 06/04/18 03:16> - Medical Decision Making 32-year-old male presented to emergency Department for forehead laceration. This was closed using sutures. Patient tolerated well patient has normal neuro exam return parameters were discussed. Close follow-up was discussed (Jameson Boswell) I was available for consultation in the emergency department. The history and physical exam were done by the midlevel provider. I was consulted for this patient's care. I reviewed the case with the midlevel provider and based on their presentation of the patient, I agree with the assessment, medical decision making and plan of care as documented. (Yaritza Davis) Disposition Is patient prescribed a controlled substance at d/c from ED?: No <Jameson Boswell - Last Filed: 06/04/18 00:34> <Yaritza Davis - Last Filed: 06/04/18 03:16> Clinical Impression: Laceration of forehead Disposition: HOME SELF-CARE Condition: Stable Instructions: Care For Your Stitches (ED), Facial Laceration (ED) Additional Instructions: Has sutures removed in 7 days.Please return to the Emergency Department if symptoms worsen or any other concerns. Referrals: Anna Ocampo MD [Primary Care Provider] - 1-2 days
== END 2018-06-04 00:56 | disposition home or self-care (01) ==
LOC: EC 23:48
DX: S01.81XA Laceration without foreign body of other part of head, initial encounter (principal); J45.909 Unspecified asthma, uncomplicated; K21.9 Gastro-esophageal reflux disease without esophagitis; F41.9 Anxiety disorder, unspecified; Z79.51 Long term (current) use of inhaled steroids; Z79.899 Other long term (current) drug therapy; Z88.0 Allergy status to penicillin; W22.8XXA Striking against or struck by other objects, initial encounter; Y92.69 Other specified industrial and construction area as the place of occurrence of the external cause; Y99.0 Civilian activity done for income or pay
CPT/HCPCS: 99282; 12013; J2001

== ENCOUNTER 2018-06-06 04:55 | Emergency (ER) | payer OTHER ==
[2018-06-06 05:04] VITALS: TEMP 98.4
--- NOTE | 2018-06-06 06:33 | CT ---
EXAM: CT Head Without Intravenous Contrast CLINICAL HISTORY: ITS.REASON CT Reason: trauma TECHNIQUE: Axial computed tomography images of the head/brain without intravenous contrast. CTDI is 57.4 mGy and DLP is 1037 mGy-cm. This CT exam was performed using one or more of the following dose reduction techniques: automated exposure control, adjustment of the mA and/or kV according to patient size, and/or use of iterative reconstruction technique. Coronal and sagittal reformatted images were created and reviewed. COMPARISON: CT 04/11/16 FINDINGS: Brain: Unremarkable. No hemorrhage. No significant white matter disease. No edema. Ventricles: Unremarkable. No ventriculomegaly. Bones/joints: Unremarkable. No acute fracture. Soft tissues: Unremarkable. Sinuses: Right frontal sinus and left ethmoid sinus mucous retention cysts. Mastoid air cells: Unremarkable as visualized. No mastoid effusion. IMPRESSION: No acute intracranial findings.
--- NOTE | 2018-06-06 06:46 | ED ---
Head Injury HPI - General Chief complaint: Head Injury Stated complaint: [facility] revisit head injury Time Seen by Provider: 06/06/18 05:14 Source: patient Mode of arrival: ambulatory Limitations: no limitations - History of Present Illness Initial comments: This patient is a 32-year-old man who presents to be evaluated for head injury. Patient states that he was at work about 3 days ago using a pry bar. He states that the bar slipped coming loose and striking him in the frontal area of the head. Patient states that over the past day he has had increasing pain. Patient denies fever or chills. Denies neurologic symptoms. He did not have any epistaxis. No change in vision or other sentences. MD Complaint: head injury Onset/Timin -: days(s) Mechanism of Injury: machine or tool related injury Location: frontal Loss of Consciousness: no Previous Trauma to this Area: No Place: work Radiation: none Severity: severe Quality: aching Consistency: constant Other Injuries: none Associated Symptoms: denies other symptoms - Related Data Home Medications Medication Instructions Recorded Confirmed Albuterol Inhaler [Ventolin Hfa 2 puff INHALATION RT-Q6H PRN 04/29/18 04/29/18 Inhaler] Beclomethasone Dipropionate [Qvar 2 puff INHALATION RT-BID 04/29/18 04/29/18 80 mcg] Divalproex Sodium [Depakote ER] 250 mg PO DAILY 04/29/18 04/29/18 Montelukast [Singulair] 10 mg PO DAILY 04/29/18 04/29/18 Omeprazole 20 mg PO BID 04/29/18 04/29/18 Previous Rx's Medication Instructions Recorded Loratadine [Claritin] 10 mg PO DAILY #10 tab 11/26/17 Ibuprofen [Motrin] 600 mg PO Q6HR PRN #40 day 04/29/18 Allergies/Adverse reactions: Allergies Allergy/AdvReac Type Severity Reaction Status Date / Time Penicillins Allergy Rash/Hives Verified 06/06/18 05:03 Review of Systems ROS Statement: Those systems with pertinent positive or pertinent negative responses have been documented in the HPI. ROS Other: All systems not noted in ROS Statement are negative. Constitutional: Denies: fever Eyes: Denies: eye pain, vision change ENT: Denies: ear pain, hearing loss, epistaxis, congestion Gastrointestinal: Denies: nausea, vomiting Musculoskeletal: Denies: back pain Skin: Denies: rash Neurological: Reports: headache. Denies: weakness, numbness, paresthesias, confusion Hematological/Lymphatic: Denies: easy bleeding Past Medical History Past Medical History: Asthma, Chest Pain / Angina, GERD/Reflux Additional Past Medical History / Comment(s): migraines, History of Any Multi-Drug Resistant Organisms: None Reported Past Surgical History: No Surgical Hx Reported Additional Past Surgical History / Comment(s): WISDOM TEETH REMOVED UNDER ANESTHESIA Past Anesthesia/Blood Transfusion Reactions: No Reported Reaction Past Psychological History: Anxiety Smoking Status: Current some day smoker Past Alcohol Use History: Occasional Past Drug Use History: None Reported - Past Family History Mother Family Medical History: No Reported History General Exam Limitations: no limitations General appearance: alert, in no apparent distress, obese Head exam: Present: normocephalic, other (There is a frontal contusion. No palpable deformity.) Eye exam: Present: normal appearance, PERRL, EOMI. Absent: scleral icterus, conjunctival injection, nystagmus ENT exam: Present: normal oropharynx Neck exam: Present: normal inspection, full ROM. Absent: tenderness Neurological exam: Present: alert, oriented X3, CN II-XII intact, normal gait. Absent: motor sensory deficit Skin exam: Present: warm, dry, intact, normal color. Absent: rash Course Vital Signs 06/06/18 06/06/18 04:59 07:18 Temperature 98.4 F Pulse Rate 89 75 Respiratory 18 16 Rate Blood Pressure 133/68 111/73 O2 Sat by Pulse 98 99 Oximetry Disposition Clinical Impression: Closed head injury, Concussion Disposition: HOME SELF-CARE Condition: Good Instructions: Concussion (ED) Is patient prescribed a controlled substance at d/c from ED?: No Referrals: Anna Ocampo MD [Primary Care Provider] - 1-2 days Elizabeth Pires MD [STAFF PHYSICIAN] - 1-2 days
[2018-06-06 07:20] VITALS: BP 111/73; PULSE 75; RESP 16
== END 2018-06-06 07:18 | disposition home or self-care (01) ==
LOC: EC 04:55
DX: S06.0X0A Concussion without loss of consciousness, initial encounter (principal); J45.909 Unspecified asthma, uncomplicated; K21.9 Gastro-esophageal reflux disease without esophagitis; G43.909 Migraine, unspecified, not intractable, without status migrainosus; Z79.51 Long term (current) use of inhaled steroids; Z79.899 Other long term (current) drug therapy; Z88.0 Allergy status to penicillin; W22.8XXA Striking against or struck by other objects, initial encounter; Y92.69 Other specified industrial and construction area as the place of occurrence of the external cause; Y99.0 Civilian activity done for income or pay
CPT/HCPCS: 70450; 99283

== ENCOUNTER 2018-10-05 01:36 | Emergency (ER) | payer OTHER ==
[2018-10-05] MEDS ORDERED: SODIUM CHLORIDE 0.9% 1,000 ML IV STA (01:56)
[2018-10-05] MEDS ORDERED: KETOROLAC 30 MG/ML 1 ML VIAL IVP STA (02:00)
--- NOTE | 2018-10-05 02:02 | ED ---
General Adult HPI - General Chief complaint: Dizziness Stated complaint: Dizziness/Headache Source: patient, family Mode of arrival: ambulatory Limitations: no limitations - Related Data Home Medications Medication Instructions Recorded Confirmed Albuterol Inhaler [Ventolin Hfa 2 puff INHALATION RT-Q6H PRN 04/29/18 04/29/18 Inhaler] Beclomethasone Dipropionate [Qvar 2 puff INHALATION RT-BID 04/29/18 04/29/18 80 mcg] Divalproex Sodium [Depakote ER] 250 mg PO DAILY 04/29/18 04/29/18 Montelukast [Singulair] 10 mg PO DAILY 04/29/18 04/29/18 Omeprazole 20 mg PO BID 04/29/18 04/29/18 Previous Rx's Medication Instructions Recorded Loratadine [Claritin] 10 mg PO DAILY #10 tab 11/26/17 Ibuprofen [Motrin] 600 mg PO Q6HR PRN #40 day 04/29/18 Allergies Allergy/AdvReac Type Severity Reaction Status Date / Time Penicillins Allergy Rash/Hives Verified 10/05/18 01:46 Review of Systems ROS Statement: Those systems with pertinent positive or pertinent negative responses have been documented in the HPI. ROS Other: All systems not noted in ROS Statement are negative. Past Medical History Past Medical History: Asthma, Chest Pain / Angina, GERD/Reflux Additional Past Medical History / Comment(s): migraines, History of Any Multi-Drug Resistant Organisms: None Reported Past Surgical History: No Surgical Hx Reported Additional Past Surgical History / Comment(s): WISDOM TEETH REMOVED UNDER ANESTHESIA Past Anesthesia/Blood Transfusion Reactions: No Reported Reaction Past Psychological History: Anxiety Smoking Status: Current every day smoker Past Alcohol Use History: Occasional Past Drug Use History: None Reported - Past Family History Mother Family Medical History: No Reported History General Exam Limitations: no limitations Course Vital Signs 10/05/18 10/05/18 01:41 03:17 Temperature 98.8 F 97.9 F Pulse Rate 94 82 Respiratory 18 16 Rate Blood Pressure 125/72 106/69 O2 Sat by Pulse 98 98 Oximetry Medical Decision Making - Medical Decision Making Dictation was produced using [employer] dictation software. please excuse any grammatical, word or spelling errors. Chief Complaint: 32-year-old male in no significant past medical history presents with chief complaint of sore throat, cough History of Present Illness: 32-year-old male presents chief complaint of sore throat and cough. Patient has been feeling since yesterday. Patient denies any constitutional symptoms. He does state he had some runny nose earlier today. He does report some right ear pain. Does have pain with swallowing. Patient has been around other sick individuals. He does feel as though his head is foggy. Denies sensation of the room spinning. The ROS documented in this emergency department record has been reviewed and confirmed by me. Those systems with pertinent positive or negative responses have been documented in the HPI. All other systems are other negative and/or noncontributory. PHYSICAL EXAM: General Impression: Alert and oriented x3, not in acute distress HEENT: Normocephalic atraumatic, extra-ocular movements intact, pupils equal and reactive to light bilaterally, mucous membranes moist, erythema to the oropharynx with some ulcers over the right tonsil Cardiovascular: Heart regular rate and rhythm, S1&S2 audible, no murmurs, rubs or gallops Chest: Lungs clear to auscultation bilaterally, no rhonchi, no wheeze, no rales Abdomen: Bowel sounds present, abdomen soft, non-tender, non-distended, no organomegaly Musculoskeletal: Pulses present and equal in all extremities, no peripheral edema Motor: Power 5/5 bilaterally, no focal deficits noted Neurological: CN II-XII grossly intact, no focal motor or sensory deficits noted Skin: Intact with no visualized rashes Psych: Normal affect and mood ED course: 32-year-old male with clinical presentation consistent with pharyngitis. Vital signs upon arrival are within acceptable limits.Flu test negative. Group A strep rapid negative. Patient given fluids, Toradol, Zofran. Patient observed in emergency department for several hours. He is reevaluated found to be improved. Patient's likely secondary to viral URI. Told to follow up with his primary care physician upon discharge. This is a hydrated statement for Tylenol for constitutional symptoms. - Lab Data Lab Results 10/05/18 10/05/18 Range/Units 02:14 02:14 Influenza Type A RNA Not Detected (Not Detectd) Influenza Type B (PCR) Not Detected (Not Detectd) Group A Strep Rapid Negative (Negative) Disposition Clinical Impression: Dizziness Disposition: HOME SELF-CARE Condition: Good Instructions: Dizziness (ED) Is patient prescribed a controlled substance at d/c from ED?: No Referrals: Anna Ocampo MD [Primary Care Provider] - 1-2 days Time of Disposition: 04:42
[2018-10-05] MEDS ORDERED: ONDANSETRON 4 MG/2 ML VIAL IVP STA (03:07)
[2018-10-05 03:18] VITALS: PULSE 82; RESP 16
[2018-10-05 05:00] VITALS: BP 110/72; TEMP 97.8
== END 2018-10-05 05:00 | disposition home or self-care (01) ==
LOC: EC 01:36
DX: R42 Dizziness and giddiness (principal); R05 Cough; H92.01 Otalgia, right ear; R07.0 Pain in throat; J45.909 Unspecified asthma, uncomplicated; K21.9 Gastro-esophageal reflux disease without esophagitis; F17.200 Nicotine dependence, unspecified, uncomplicated; Z79.51 Long term (current) use of inhaled steroids; Z79.899 Other long term (current) drug therapy; Z88.0 Allergy status to penicillin
CPT/HCPCS: 87081; 87430; 87502; 99284; 96374; 96375; 96361 ×3; J2405; J1885

== ENCOUNTER → 2018-10-30 | Outpatient (CLI) | payer OTHER ==
--- NOTE | 2018-10-31 07:22 | US ---
EXAMINATION TYPE: US abdomen complete DATE OF EXAM: 10/30/2018 COMPARISON: 12/17/2016 CLINICAL HISTORY: R11.0 Nausea. Nausea EXAM MEASUREMENTS: Liver Length: 16.2 cm Gallbladder Wall: 0.3 cm CBD: 0.4 cm Spleen: 10.2 cm Right Kidney: 9.3 x 4.6 x 3.8 cm Left Kidney: 9.4 x 6.1 x 4.6 cm Pancreas: Tail obscured by overlying bowel gas Liver: wnl Gallbladder: Somewhat contracted. Evidence for sonographic Fierro's sign: No CBD: wnl Spleen: wnl Right Kidney: wnl Left Kidney: wnl Upper IVC: wnl Abd Aorta: wnl The liver is homogenous. The intrahepatic portion of the IVC and proximal abdominal aorta are within normal limits. There is no evidence of cholelithiasis. Common bile duct is unremarkable. The visu alized portions of the pancreas are homogenous. The spleen is unremarkable. Kidneys are symmetric a nd free of hydronephrosis. No renal lesions are seen. IMPRESSION: Gallbladder is contracted, limiting examination of the gallbladder however there is no cu rrent sonographic evidence of acute cholecystitis. HIDA scan with CCK could evaluate for chronic chol ecystitis or biliary dyskinesia.
== END | disposition home or self-care (01) ==
LOC: RADUSMAIN 17:47
PROVIDERS: ATTEND Family Medicine
DX: K82.0 Obstruction of gallbladder (principal)
CPT/HCPCS: 76700

== ENCOUNTER → 2018-11-05 | Outpatient (CLI) | payer OTHER ==
--- NOTE | 2018-11-05 11:43 | CT ---
EXAMINATION TYPE: CT sinus wo con DATE OF EXAM: 11/05/2018 COMPARISON: 12/06/2017 HISTORY: Chronic sinusitis CT DLP: 600 mGycm. Automated Exposure Control for Dose Reduction was Utilized. TECHNIQUE: CT scan of the sinuses is performed without contrast, axial images are obtained, coronal r eformatted images are also reviewed. FINDINGS: There is marked improvement of the previously seen severe mucosal thickening and sinusitis. There is now only scant mucosal thickening of the maxillary sinuses and ethmoid sinuses. The sphenoi d sinuses and frontal sinuses are well aerated as are the visualized portion of the mastoid air cells . There is mild rightward nasal septal deviation and left-sided superior nasal turbinate jayshree bullo sa. There are bilateral nonobstructing Kasey cells. Osteophytic complexes are patent as are the fron keila recesses. Evaluation of the intracranial structures are suboptimally visualized and evaluated given technique. Globes and extraocular muscles appear symmetric. Lenses appear in place. IMPRESSION: Marked improvement of the previously seen moderate to severe sinusitis. Now only scant mu cosal thickening resides along the margins of the maxillary and ethmoid sinuses. Ostiomeatal complexe s are patent.
== END | disposition home or self-care (01) ==
LOC: RADCTMAIN 10:55
PROVIDERS: ATTEND Otolaryngology Facial Plastic Surgery
DX: J32.0 Chronic maxillary sinusitis (principal); J32.2 Chronic ethmoidal sinusitis
CPT/HCPCS: 70486

== ENCOUNTER → 2018-11-17 | Outpatient (CLI) | payer OTHER ==
--- NOTE | 2018-11-17 17:17 | NM ---
EXAMINATION TYPE: NM hepatobiliary w EF DATE OF EXAM: 11/17/2018 COMPARISON: Complete abdominal ultrasound October 30, 2018 HISTORY: Nausea per order. Diminished appetite with reflux-like symptoms. TECHNIQUE: After the intravenous administration of 5.07 mCi Tc 99m Mebrofenin hepatobiliary scintigra phy is performed. Immediate images post injection. FINDINGS: There is satisfactory initial accumulation of tracer by the liver. The gallbladder is visualized wit hin 30 minutes. The small bowel activity is noted within 20 minutes. At one hour 8 ounces of oral e nsure plus is given to mimic CCK and gallbladder ejection fraction is calculated at 84 %, not diminis hed from the normal range. Therefore there is no scintigraphic evidence of cystic or common bile jose t obstruction to suggest acute cholecystitis . IMPRESSION: Ejection fraction is 84%, some consider this abnormal or a hyperkinetic response.
== END ==
LOC: RADNMMAIN 12:39
PROVIDERS: ATTEND Family Medicine
DX: R11.0 Nausea (principal)
CPT/HCPCS: 78226; A9537

== ENCOUNTER 2019-01-05 01:27 | Emergency (ER) | payer OTHER ==
[2019-01-05] MEDS ORDERED: SODIUM CHLORIDE 0.9% 1,000 ML IV STA (02:11)
[2019-01-05] MEDS ORDERED: ONDANSETRON 4 MG/2 ML VIAL IVP STA (02:11)
[2019-01-05 03:03] LABS: Basophils % (A) 0 %; Eosinophils # (A) 0.2 k/uL (0-0.7); Eosinophils % (A) 1 %; HCT 48.8 % (39.0-53.0); HGB 16.3 gm/dL (13.0-17.5); Lymphocytes # (A) 2.1 k/uL (1.0-4.8); Lymphocytes % (A) 19 %; MCH 31.8 pg (25.0-35.0); MCHC 33.3 g/dL (31.0-37.0); MCV 95.4 fL (80.0-100.0); Mean Platelet Volume 7.4; Monocytes # (A) 0.5 k/uL (0-1.0); Monocytes % (A) 5 %; Neutrophils % (A) 73 %; Platelet Count 242 k/uL (150-450); RBC 5.12 m/uL (4.30-5.90); RDW 13.8 % (11.5-15.5)
[2019-01-05 03:05] LABS: Appearance,Urine Clear (Clear); Bilirubin,Urine Negative (Negative); Blood,Urine Negative (Negative); Color,Urine Light Yellow; Glucose,Urine (UA) Negative (Negative); Ketones,Urine Negative (Negative); Leukocyte Esterase,Urine Negative (Negative); Nitrite,Urine Negative (Negative); PH, Urine 6.5 (5.0-8.0); Protein,Urine Negative (Negative); Specific Gravity,Urine 1.002 (1.001-1.035); Urobilinogen,Urine <2.0 mg/dL (<2.0)
--- NOTE | 2019-01-05 03:20 | ED ---
Chest Pain HPI - General Chief Complaint: Chest Pain Stated Complaint: weakness Time Seen by Provider: 01/05/19 01:54 Source: patient Mode of arrival: ambulatory Limitations: no limitations - History of Present Illness Initial Comments: 33-year-old male patient presents to the emergency department today for evaluation of chest pressure, vomiting, and sweats. Patient states symptoms started a couple of hours ago with an episode of vomiting. States that afterwards he became quite diaphoretic and was having some mild trouble breathing. Patient states this progressed into feeling upper extremity weakness and chest pressure. Patient states symptoms persisted so he presented here for further evaluation. Patient does admit to having a cough over the last 2-3 days. States he is coughing up clear sputum. Patient states he does have a history of COPD. Patient reports history of coronary artery disease in a maternal grandmother and great-grandmother. Patient does admit to smoking cigarettes. He denies any abdominal pain, constipation, or diarrhea. Denies any hematuria, dysuria, urinary urgency, urinary frequency. Patient denies any recent rash, fever, chills, back pain, numbness, tingling, dizziness, weakness, headache, visual changes, or any other complaints. - Related Data Home Medications Medication Instructions Recorded Confirmed Albuterol Inhaler [Ventolin Hfa 2 puff INHALATION RT-Q6H PRN 04/29/18 04/29/18 Inhaler] Beclomethasone Dipropionate [Qvar 2 puff INHALATION RT-BID 04/29/18 04/29/18 80 mcg] Divalproex Sodium [Depakote ER] 250 mg PO DAILY 04/29/18 04/29/18 Montelukast [Singulair] 10 mg PO DAILY 04/29/18 04/29/18 Omeprazole 20 mg PO BID 04/29/18 04/29/18 Previous Rx's Medication Instructions Recorded Loratadine [Claritin] 10 mg PO DAILY #10 tab 11/26/17 Ibuprofen [Motrin] 600 mg PO Q6HR PRN #40 day 04/29/18 Allergies Allergy/AdvReac Type Severity Reaction Status Date / Time Penicillins Allergy Rash/Hives Verified 01/05/19 01:36 Review of Systems ROS Statement: Those systems with pertinent positive or pertinent negative responses have been documented in the HPI. ROS Other: All systems not noted in ROS Statement are negative. EKG Findings - EKG Comments: EKG Findings:: EKG obtained at shows normal sinus rhythm with a ventricular rate of 91, VT interval 154, QRS duration 90, QT 366, QTc 450. No evidence of ST elevation or depression. Past Medical History Past Medical History: Asthma, Chest Pain / Angina, COPD, GERD/Reflux Additional Past Medical History / Comment(s): migraines, History of Any Multi-Drug Resistant Organisms: None Reported Past Surgical History: No Surgical Hx Reported Additional Past Surgical History / Comment(s): WISDOM TEETH Past Anesthesia/Blood Transfusion Reactions: No Reported Reaction Past Psychological History: Anxiety Smoking Status: Current every day smoker Past Alcohol Use History: Occasional Past Drug Use History: None Reported - Past Family History Mother Family Medical History: No Reported History General Exam Limitations: no limitations General appearance: alert, in no apparent distress, other (Physical well- developed, well-nourished adult male patient in no acute distress. Vital signs upon presentation are temperature 98.2F, pulse 91, respirations 18, blood pressure 120/77, pulse ox 98% on room air.) Eye exam: Present: normal appearance, PERRL, EOMI. Absent: scleral icterus, conjunctival injection, periorbital swelling ENT exam: Present: normal exam, normal oropharynx, mucous membranes moist, TM's normal bilaterally Respiratory exam: Present: normal lung sounds bilaterally. Absent: respiratory distress, wheezes, rales, rhonchi, stridor Cardiovascular Exam: Present: regular rate, normal rhythm, normal heart sounds. Absent: systolic murmur, diastolic murmur, rubs, gallop, clicks GI/Abdominal exam: Present: soft, normal bowel sounds. Absent: distended, tenderness, guarding, rebound, rigid Neurological exam: Present: alert, oriented X3, CN II-XII intact Psychiatric exam: Present: normal affect, normal mood Skin exam: Present: warm, dry, intact, normal color. Absent: rash Course Vital Signs 01/05/19 01:30 Temperature 98.2 F Pulse Rate 91 Respiratory 18 Rate Blood Pressure 128/77 O2 Sat by Pulse 98 Oximetry Chest Pain [facility] RADIOLOGY:Two-view x-ray of the chest is obtained. Report was reviewed in its entirety. Impression by Dr. Dominguez shows no acute cardiopulmonary process. MDM: 33-year-old male patient presented to the emergency department today for evaluation of sweating, chest pressure, and weakness after an episode of vomiting. Patient is also reporting persistent cough for the last few days. Physical examination is unremarkable. He is neurologically intact no focal deficits. Lung sounds are clear and equal. Labs reviewed and are unremarkable. Chest x-ray shows no acute cardiopulmonary process. EKG is unremarkable. Patient does report improvement of symptoms after receiving IV fluids and Zofran here in the emergency department. He'll be discharged home at this time to follow up with his primary care physician for recheck in 1-2 days. Return parameters were discussed in detail. He verbalizes understanding and agrees with this plan. Disposition Clinical Impression: Acute bronchitis, Vomiting Disposition: HOME SELF-CARE Condition: Good Instructions (If sedation given, give patient instructions): Acute Bronchitis (ED), Acute Nausea and Vomiting (ED) Additional Instructions: Take medications as instructed. Follow-up with her primary care physician for recheck in 1-2 days. Return to the emergency department immediately for any new, worsening, or concerning symptoms. Is patient prescribed a controlled substance at d/c from ED?: No Referrals: Anna Ocampo MD [Primary Care Provider] - 1-2 days Time of Disposition: 03:46
--- NOTE | 2019-01-05 03:22 | XR ---
EXAM: XR Chest, 2 Views CLINICAL HISTORY: ITS.REASON XR Reason: Chest Pain TECHNIQUE: Frontal and lateral views of the chest. COMPARISON: 11/25/17 chest x-ray FINDINGS: Lungs: No consolidation or mass. Pleural space: No effusion. Heart: No cardiomegaly. Mediastinum: Unremarkable. Bones/joints: No acute findings. IMPRESSION: No acute cardiopulmonary process.
[2019-01-05 03:25] LABS: Partial Thromboplastin Time 25.3 sec (22.0-30.0); Prothrombin Time 10.4 sec (9.0-12.0)
[2019-01-05 03:26] LABS: ALT 34 U/L (21-72); AST 31 U/L (17-59); Albumin 4.7 g/dL (3.5-5.0); Alkaline Phosphatase 60 U/L (38-126); Amylase 54 U/L (30-110); Anion Gap 11 mmol/L; Blood Urea Nitrogen 6 mg/dL (9-20); Calcium 9.6 mg/dL (8.4-10.2); Carbon Dioxide 24 mmol/L (22-30); Chloride 103 mmol/L (98-107); Glucose 143 mg/dL (74-99); Lipase 102 U/L (23-300); Magnesium 2.3 mg/dL (1.6-2.3); Potassium 3.2 mmol/L (3.5-5.1); Sodium 138 mmol/L (137-145); Total Bilirubin 2.1 mg/dL (0.2-1.3); Total Protein 7.4 g/dL (6.3-8.2)
[2019-01-05] MEDS ORDERED: POTASSIUM CHLORIDE ER 20 MEQ TAB.ER PO STA (03:44)
[2019-01-05] MEDS ORDERED: ONDANSETRON 4 MG ODT STARTER PACK 2 TAB BTL PO STA (03:46)
[2019-01-05 04:01] VITALS: BP 121/85; PULSE 94; RESP 20; TEMP 97.8
== END 2019-01-05 04:10 | disposition home or self-care (01) ==
LOC: EC 01:27
DX: J20.9 Acute bronchitis, unspecified (principal); R11.10 Vomiting, unspecified; J44.9 Chronic obstructive pulmonary disease, unspecified; K21.9 Gastro-esophageal reflux disease without esophagitis; F17.210 Nicotine dependence, cigarettes, uncomplicated; Z79.899 Other long term (current) drug therapy; Z88.0 Allergy status to penicillin; Z86.79 Personal history of other diseases of the circulatory system
CPT/HCPCS: 36415; 93005; 80053; 82150; 83690; 83735; 84484; 85025; 85610; 85730; 81003; 71046; 99285; 96374; 96361; J2405; S0119

== ENCOUNTER 2019-03-18 03:00 | Emergency (ER) | payer OTHER ==
[2019-03-18] MEDS ORDERED: ACETAMINOPHEN TAB 325 MG TAB PO STA (03:30)
[2019-03-18] MEDS ORDERED: IBUPROFEN 400 MG TAB PO STA (03:30)
[2019-03-18] MEDS ORDERED: valACYclovir 500 MG TAB PO STA (05:25)
--- NOTE | 2019-03-18 05:26 | ED ---
Fever HPI - General Chief Complaint: Fever Stated Complaint: dizziness Time Seen by Provider: 03/18/19 03:14 Source: patient Mode of arrival: ambulatory Limitations: no limitations - History of Present Illness MD Complaint: fever, other (Sore throat) -: days(s) Temperature Source: oral Associated Symptoms: chills, sore throat Treatments Prior to Arrival: none - Related Data Home Medications Medication Instructions Recorded Confirmed Albuterol Inhaler [Ventolin Hfa 2 puff INHALATION RT-Q6H PRN 04/29/18 03/18/19 Inhaler] Beclomethasone Dipropionate [Qvar 2 puff INHALATION RT-BID 04/29/18 03/18/19 80 mcg] Divalproex Sodium [Depakote ER] 250 mg PO DAILY 04/29/18 03/18/19 Montelukast [Singulair] 10 mg PO DAILY 04/29/18 03/18/19 Omeprazole 20 mg PO BID 04/29/18 03/18/19 Previous Rx's Medication Instructions Recorded Loratadine [Claritin] 10 mg PO DAILY #10 tab 11/26/17 valACYclovir HCL [Valacyclovir] 1,000 mg PO Q12HR #20 tab 03/18/19 Allergies Allergy/AdvReac Type Severity Reaction Status Date / Time Penicillins Allergy Rash/Hives Verified 01/05/19 01:36 Review of Systems ROS Statement: Those systems with pertinent positive or pertinent negative responses have been documented in the HPI. ROS Other: All systems not noted in ROS Statement are negative. Constitutional: Reports: fever, chills. Denies: weakness Eyes: Denies: eye pain ENT: Reports: throat pain. Denies: ear pain, dental pain, hearing loss, congestion Respiratory: Denies: cough, dyspnea Cardiovascular: Denies: chest pain Gastrointestinal: Denies: abdominal pain, nausea, vomiting Genitourinary: Denies: dysuria, hematuria Musculoskeletal: Denies: back pain Skin: Denies: rash Neurological: Denies: headache Past Medical History Past Medical History: Asthma, Chest Pain / Angina, COPD, GERD/Reflux Additional Past Medical History / Comment(s): migraines, History of Any Multi-Drug Resistant Organisms: None Reported Past Surgical History: No Surgical Hx Reported Additional Past Surgical History / Comment(s): WISDOM TEETH Past Anesthesia/Blood Transfusion Reactions: No Reported Reaction Past Psychological History: Anxiety Smoking Status: Current every day smoker Past Alcohol Use History: Occasional Past Drug Use History: Marijuana - Past Family History Mother Family Medical History: No Reported History General Exam Limitations: no limitations General appearance: alert, in no apparent distress Head exam: Present: atraumatic, normocephalic Eye exam: Present: normal appearance. Absent: scleral icterus, conjunctival injection ENT exam: Present: mucous membranes moist, TM's normal bilaterally, normal external ear exam, other (The patient does have a cluster of vesicular lesions located in the midline on the hard palate.). Absent: normal oropharynx Neck exam: Present: normal inspection, full ROM, lymphadenopathy. Absent: tenderness, meningismus Respiratory exam: Present: normal lung sounds bilaterally. Absent: respiratory distress, wheezes, rales, rhonchi, stridor Cardiovascular Exam: Present: regular rate, normal rhythm, normal heart sounds. Absent: systolic murmur, diastolic murmur, rubs, gallop GI/Abdominal exam: Present: soft. Absent: distended, tenderness, guarding, rebound, rigid, mass Neurological exam: Present: alert Skin exam: Present: warm, dry, intact, normal color. Absent: rash Course Vital Signs 03/18/19 03/18/19 03/18/19 03:01 04:06 05:00 Temperature 102.3 F H 100.9 F H Pulse Rate 110 H 90 Respiratory 18 15 Rate Blood Pressure 94/65 104/69 O2 Sat by Pulse 94 L 98 98 Oximetry 03/18/19 03/18/19 05:05 05:47 Temperature 98.6 F Pulse Rate 78 Respiratory 18 Rate Blood Pressure 105/67 O2 Sat by Pulse 98 95 Oximetry Medical Decision Making - Medical Decision Making The patient clinically appearing very characteristic for an oral herpes simplex infection. The patient started on valacyclovir here and prescription to [facility]. Swab sent but is a send out lab. - Lab Data Lab Results 03/18/19 Range/Units 03:26 Group A Strep Rapid Negative (Negative) Disposition Clinical Impression: Fever, Herpes simplex Disposition: HOME SELF-CARE Condition: Good Instructions (If sedation given, give patient instructions): Fever in Adults (ED), Oral Herpes Simplex Virus Infections (ED) Prescriptions: valACYclovir HCL [Valacyclovir] 1,000 mg PO Q12HR #20 tab Is patient prescribed a controlled substance at d/c from ED?: No Referrals: None,Stated [Primary Care Provider] - 1-2 days
[2019-03-18 05:49] VITALS: BP 105/67; PULSE 78; RESP 18; TEMP 98.6
== END 2019-03-18 05:47 | disposition home or self-care (01) ==
LOC: EC 03:00
DX: B00.1 Herpesviral vesicular dermatitis (principal); J44.9 Chronic obstructive pulmonary disease, unspecified; K21.9 Gastro-esophageal reflux disease without esophagitis; F17.200 Nicotine dependence, unspecified, uncomplicated; Z88.0 Allergy status to penicillin; Z79.51 Long term (current) use of inhaled steroids; Z79.899 Other long term (current) drug therapy; Z86.69 Personal history of other diseases of the nervous system and sense organs; Z98.890 Other specified postprocedural states
CPT/HCPCS: 87081; 87430; 87529; 99283

== ENCOUNTER → 2019-06-19 | Outpatient (CLI) | payer OTHER ==
--- NOTE | 2019-06-21 12:38 | CT ---
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 Coronal and sagittal reconstru ctions performed. CT DLP: 365.5 mGycm Automated exposure control for dose reduction was used. FINDINGS: Are normal size without pericardial effusion. Aorta normal caliber with conventional arch vessel branching anatomy. No thoracic lymphadenopathy by CT size criteria. Very minimal emphysematous change in the upper lungs. Nonspecific subpleural groundglass in the upper lungs could reflect interstitial pneumonitis such as DIP given the smoking history. A 5 mm anterior right midlung pulmonary nodule is minimally bulkier but is overall stable in size on axial image 30. A 7 mm subpleural pulmonary nodule right middle lobe is minimally increased at 6 mm on 12/05/2017. A 3 mm left upper lobe pulmonary nodule, axial image 23 is unchanged. No new pulmonary nodules. Visualized upper abdomen shows a hilar splenule. Bones: No osseous destructive process. IMPRESSION: 1. COPD WITH MINIMAL UPPER LUNG EMPHYSEMATOUS CHANGE. 2. MILD PATCHY UPPER LUNG SUBPLEURAL GROUNDGLASS. GIVEN THE SMOKING HISTORY, FINDINGS COULD REPRESENT AN INTERSTITIAL PNEUMONITIS SUCH DIP. MOSAIC ATTENUATION/AIR TRAPPING FROM SMALL AIRWAYS DISEASE IS ALSO POSSIBLE. 3. CONSIDER AN ADDITIONAL 6-12 MONTH EXAM TO REASSESS THESE FINDINGS WELL TO REASSESS A 7 MM MATHEWS BPLEURAL RIGHT MIDDLE LOBE PULMONARY NODULE WHICH IS MINIMALLY INCREASED IN SIZE.
== END ==
LOC: RADCTMAIN 16:08
PROVIDERS: ATTEND Family Medicine
DX: R91.1 Solitary pulmonary nodule (principal); J43.9 Emphysema, unspecified; R91.8 Other nonspecific abnormal finding of lung field; F17.219 Nicotine dependence, cigarettes, with unspecified nicotine-induced disorders
CPT/HCPCS: 71250

== ENCOUNTER 2020-01-09 22:05 | Emergency (ER) | payer OTHER ==
[2020-01-09 22:46] LABS: Basophils # (A) 0.1 k/uL (0-0.2); Basophils % (A) 1 %; Eosinophils # (A) 0.2 k/uL (0-0.7); Eosinophils % (A) 2 %; HCT 54.1 % (39.0-53.0); HGB 17.5 gm/dL (13.0-17.5); Lymphocytes # (A) 2.6 k/uL (1.0-4.8); Lymphocytes % (A) 31 %; MCH 31.4 pg (25.0-35.0); MCHC 32.4 g/dL (31.0-37.0); Mean Platelet Volume 7.6; Monocytes # (A) 0.6 k/uL (0-1.0); Monocytes % (A) 7 %; Neutrophils # (A) 4.7 k/uL (1.3-7.7); Neutrophils % (A) 56 %; Platelet Count 273 k/uL (150-450); RBC 5.58 m/uL (4.30-5.90); RDW 12.9 % (11.5-15.5); WBC 8.3 k/uL (3.8-10.6)
--- NOTE | 2020-01-09 22:53 | XR ---
EXAMINATION TYPE: XR chest 2V DATE OF EXAM: 01/09/2020 COMPARISON: 01/05/2019 HISTORY: Chest pain TECHNIQUE: 2 views. Heart and mediastinum are normal. Lungs are clear. Diaphragm is normal. Bony thorax appears intact. Impression Normal chest. No change.
[2020-01-09 22:56] LABS: INR 0.9 (<1.2); Prothrombin Time 9.7 sec (9.0-12.0)
[2020-01-09 22:57] LABS: ALT 29 U/L (4-49); AST 27 U/L (17-59); African American GFR (CKD) >90 (>60 ml/min/1.73 sqM); Albumin 4.7 g/dL (3.5-5.0); Alkaline Phosphatase 62 U/L (38-126); Anion Gap 7 mmol/L; Blood Urea Nitrogen 9 mg/dL (9-20); Calcium 9.6 mg/dL (8.4-10.2); Carbon Dioxide 29 mmol/L (22-30); Chloride 104 mmol/L (98-107); Glucose 98 mg/dL (74-99); Magnesium 2.1 mg/dL (1.6-2.3); Non-African American GFR(CKD) >90 (>60 ml/min/1.73 sqM); Sodium 140 mmol/L (137-145); Total Protein 7.7 g/dL (6.3-8.2)
--- NOTE | 2020-01-09 23:39 | ED ---
Chest Pain HPI - General Chief Complaint: Chest Pain Stated Complaint: Chest pain Source: patient Mode of arrival: wheelchair Limitations: no limitations - History of Present Illness Initial Comments: The patient is a 34-year-old male presents to the emergency department after sudden onset of chest pain after eating dinner. He reports the pain started between 7:30 PM and 8. He describes it as a sharp shooting pain which is in the center of his chest. States that it is worsened with turning his head to the left and right. It has been constant since onset. He did not take any medications at home for her symptoms. Admits to mild shortness of breath. Denies any nausea, vomiting or diaphoresis. No history of previous cardiac issues. Does report to a history of asthma. Denies a cough or hemoptysis. No sick contacts or similar symptoms. No history of DVT or PE. No calf pain or swelling. Denies a family history of premature cardiac . Denies fevers or chills. No history of IV drug use. No ripping or tearing sensation to his back. There are no other alleviating, precipitating or modifying factors - Related Data Home Medications Medication Instructions Recorded Confirmed Albuterol Inhaler (Bulk) [Ventolin 2 puff INHALATION RT-Q6H PRN 04/29/18 03/18/19 Hfa Inhaler] Beclomethasone Dipropionate [Qvar 2 puff INHALATION RT-BID 04/29/18 03/18/19 80 mcg] Divalproex Sodium [Depakote ER] 250 mg PO DAILY 04/29/18 03/18/19 Montelukast [Singulair] 10 mg PO DAILY 04/29/18 03/18/19 Omeprazole 20 mg PO BID 04/29/18 03/18/19 Previous Rx's Medication Instructions Recorded Loratadine [Claritin] 10 mg PO DAILY #10 tab 11/26/17 valACYclovir HCL [Valacyclovir] 1,000 mg PO Q12HR #20 tab 03/18/19 Allergies Allergy/AdvReac Type Severity Reaction Status Date / Time Penicillins Allergy Rash/Hives Verified 01/09/20 22:17 Review of Systems ROS Statement: Those systems with pertinent positive or pertinent negative responses have been documented in the HPI. ROS Other: All systems not noted in ROS Statement are negative. EKG Findings - EKG Comments: EKG Findings:: EKG demonstrates a normal sinus rhythm with a ventricular rate of 89. CA interval 152. QRS 86. QTC of 438. Inverted T-wave in lead 3. No acute ST segment elevations. Past Medical History Past Medical History: Asthma, Chest Pain / Angina, GERD/Reflux Additional Past Medical History / Comment(s): migraines, History of Any Multi-Drug Resistant Organisms: None Reported Past Surgical History: No Surgical Hx Reported Additional Past Surgical History / Comment(s): WISDOM TEETH Past Anesthesia/Blood Transfusion Reactions: No Reported Reaction Past Psychological History: Anxiety Smoking Status: Current every day smoker Past Alcohol Use History: Occasional Past Drug Use History: Marijuana - Past Family History Mother Family Medical History: No Reported History General Exam Limitations: no limitations Course Vital Signs 01/09/20 01/09/20 01/09/20 22:12 22:42 23:00 Temperature 98.3 F Pulse Rate 94 86 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 A thorough history and physical exam was performed. The patient's pain is reproducible with movement. Peripheral IV was established. Laboratory studies were conducted. CBC, CMP" studies are unremarkable. Troponin is negative. Chest x-ray demonstrates no acute process. I did discuss results with the patient. I did discuss diagnosis, differential and treatment options. I did recommend waiting a second troponin, 3 hours after onset of symptoms for which the patient did agree to. Second troponin was drawn and is negative. I discussed the results of the patient. At this time the patient will be discharged home. He is instructed to call his primary care physician on Saturday. I do believe the patient would benefit from a echo. Return to the emergency department for any new or worsening symptoms. The patient was given written and verbal discharge instructions and the patient was discharged home in stable condition Disposition Clinical Impression: Chest pain Disposition: HOME SELF-CARE Condition: Stable Instructions (If sedation given, give patient instructions): Chest Pain (ED) Additional Instructions: Please follow up with your primary care doctor in regards to your chest pain. Return to the emergency room for any new worsening symptoms. I recommend an echo of your heart Is patient prescribed a controlled substance at d/c from ED?: No Referrals: Anna Ocampo MD [Primary Care Provider] - 1-2 days [facility] [Provider Group] - 1-2 days Time of Disposition: 00:45
[2020-01-09] MEDS ORDERED: ASPIRIN-ACET-CAFF 250-250-65MG 1 EACH TAB PO STA (23:40)
[2020-01-10 00:51] VITALS: BP 118/84; PULSE 70; RESP 15; TEMP 98.4
== END 2020-01-10 00:51 | disposition home or self-care (01) ==
LOC: EC 22:05
DX: R07.9 Chest pain, unspecified (principal); R06.02 Shortness of breath; J45.909 Unspecified asthma, uncomplicated; K21.9 Gastro-esophageal reflux disease without esophagitis; F17.200 Nicotine dependence, unspecified, uncomplicated; Z79.899 Other long term (current) drug therapy; Z88.0 Allergy status to penicillin
CPT/HCPCS: 36415; 71046; 80053; 83690; 83735; 84484; 85025; 85610; 85730; 93005; 99285

== ENCOUNTER → 2021-09-27 | Outpatient (CLI) | payer OTHER ==
--- NOTE | 2021-09-27 08:13 | CT ---
EXAMINATION TYPE: CT chest wo con DATE OF EXAM: 09/27/2021 COMPARISON: 06/19/2019 HISTORY: Abnormal CT Chest CT DLP: 295.7 mGycm. Automated Exposure Control for Dose Reduction was Utilized. TECHNIQUE: CT scan of the thorax is performed without IV contrast. FINDINGS: LUNGS: The lungs are grossly clear, there is no focal pneumonia identified. There is no pleural eff usion or pneumothorax seen. The tracheobronchial tree is patent. Mild emphysematous changes are seen and there remains some areas of peripheral groundglass minimal density. A 5 mm anterior right midlung pulmonary nodule is stable in size. A 7 mm subpleural pulmonary nodule right middle lobe is stable. A 3 mm left upper lobe pulmonary nodule, is unchanged. MEDIASTINUM: Lack of IV contrast is noted to limit evaluation for mediastinal and especially hilar ad enopathy. There are no definitive greater than 1 cm hilar or mediastinal lymph nodes. No cardiomega ly or pericardial effusion is seen. OTHER: Hypertrophic change of the spine.. IMPRESSION: 1. Stable subcentimeter pulmonary nodules unchanged from prior exam. Recommend additional 6 month fol low-up CT of the chest to confirm stability. 2. COPD with persistent mild groundglass patchy areas of density. Could been the basis of interstitia l pneumonitis or DIP. Correlate clinically.
== END | disposition home or self-care (01) ==
LOC: RADCTMAIN 06:33
PROVIDERS: ATTEND Family Medicine
DX: J44.9 Chronic obstructive pulmonary disease, unspecified (principal); R91.8 Other nonspecific abnormal finding of lung field; R91.1 Solitary pulmonary nodule
CPT/HCPCS: 71250

== ENCOUNTER 2021-11-14 03:32 | Emergency (ER) | payer OTHER ==
--- NOTE | 2021-11-14 03:52 | ED ---
Head Injury HPI - General Chief complaint: Head Injury Stated complaint: Head Injury Time Seen by Provider: 11/14/21 03:35 Source: patient, RN notes reviewed, old records reviewed Mode of arrival: ambulatory Limitations: altered mental status - History of Present Illness Initial comments: This is a 35-year-old male DF for evaluation. Patient has fall with head injury hematoma to post anterior septal area of his scalp. Swelling no loss of consciousness a little patient is not completely sure he is intoxicated currently patient is at a concert he tried fell backwards his head. Patient was brought home and time but the hospital secondary to swelling. Patient himself is complaining of headache. Denies any other drug use MD Complaint: head injury, head pain, fall -: hour(s) Mechanism of Injury: unsure, mechanical fall Location: occipital Loss of Consciousness: unsure Previous Trauma to this Area: No Place: outdoors Radiation: none Severity: moderate Severity scale (1-10): 6 Quality: aching Consistency: constant Provoking factors: none known Other Injuries: none Context: other (none) Associated Symptoms: denies other symptoms - Related Data Home Medications Medication Instructions Recorded Confirmed Albuterol Inhaler (Mhu) [Ventolin 2 puff INHALATION RT-Q6H PRN 04/29/18 03/18/19 Hfa Inhaler] Beclomethasone Dipropionate [Qvar 2 puff INHALATION RT-BID 04/29/18 03/18/19 80 mcg] Divalproex Sodium [Depakote ER] 250 mg PO DAILY 04/29/18 03/18/19 Montelukast [Singulair] 10 mg PO DAILY 04/29/18 03/18/19 Omeprazole 20 mg PO BID 04/29/18 03/18/19 Previous Rx's Medication Instructions Recorded Loratadine [Claritin] 10 mg PO DAILY #10 tab 11/26/17 valACYclovir HCL [Valacyclovir] 1,000 mg PO Q12HR #20 tab 03/18/19 Allergies/Adverse reactions: Allergies Allergy/AdvReac Type Severity Reaction Status Date / Time Penicillins Allergy Rash/Hives Verified 11/14/21 03:49 Review of Systems ROS Statement: Those systems with pertinent positive or pertinent negative responses have been documented in the HPI. ROS Other: All systems not noted in ROS Statement are negative. Past Medical History Past Medical History: Asthma, Chest Pain / Angina, GERD/Reflux Additional Past Medical History / Comment(s): migraines, History of Any Multi-Drug Resistant Organisms: None Reported Past Surgical History: No Surgical Hx Reported Additional Past Surgical History / Comment(s): WISDOM TEETH Past Anesthesia/Blood Transfusion Reactions: No Reported Reaction Past Psychological History: Anxiety Smoking Status: Current every day smoker Past Alcohol Use History: Occasional Past Drug Use History: Marijuana - Past Family History Mother Family Medical History: No Reported History General Exam General appearance: appears intoxicated, anxious Head exam: Present: atraumatic, normocephalic, normal inspection Eye exam: Present: normal appearance, PERRL, EOMI. Absent: scleral icterus, conjunctival injection, periorbital swelling ENT exam: Present: normal exam, mucous membranes moist Neck exam: Present: normal inspection. Absent: tenderness, meningismus, lymphadenopathy Respiratory exam: Present: normal lung sounds bilaterally. Absent: respiratory distress, wheezes, rales, rhonchi, stridor Cardiovascular Exam: Present: regular rate, normal rhythm, normal heart sounds. Absent: systolic murmur, diastolic murmur, rubs, gallop, clicks GI/Abdominal exam: Present: soft, normal bowel sounds. Absent: distended, tenderness, guarding, rebound, rigid Extremities exam: Present: normal inspection, full ROM, normal capillary refill. Absent: tenderness, pedal edema, joint swelling, calf tenderness Back exam: Present: normal inspection Neurological exam: Present: alert, oriented X3, CN II-XII intact Psychiatric exam: Present: normal affect, normal mood Skin exam: Present: warm, dry, intact, normal color. Absent: rash Course Vital Signs 11/14/21 03:40 Temperature 98.4 F Pulse Rate 100 Respiratory 18 Rate Blood Pressure 144/78 O2 Sat by Pulse 98 Oximetry - Reevaluation(s) Reevaluation #1: 11/14/21 04:43 Medical record is reviewed Reevaluation #2: 11/14/21 04:43 Patient ambulating around the emergency department without difficulty Reevaluation #3: 11/14/21 04:43 Patient informed results and questions answered Medical Decision Making - Medical Decision Making 35 male with mechanical trip and fall due to loss of balance, patient did hit his head significant hematoma but no traumatic injury, no fracture bleeding. Patient can be discharged home - Radiology Data Radiology results: report reviewed (CT brain C-spine is negative for acute disease), image reviewed Disposition Clinical Impression: Closed head injury, Hematoma of occipital region of scalp, Fall Disposition: HOME SELF-CARE Condition: Good Instructions (If sedation given, give patient instructions): Hematoma (ED), Head Injury (ED) Is patient prescribed a controlled substance at d/c from ED?: No Referrals: Anna Ocampo MD [Primary Care Provider] - 1-2 days
--- NOTE | 2021-11-14 04:52 | CT ---
EXAMINATION TYPE: CT brain cspine wo con DATE OF EXAM: 11/14/2021 COMPARISON: 06/06/2018 HISTORY: fall/injury and pain. hematoma on left side of head. CT DLP: 1482.1 mGycm Automated exposure control for dose reduction was used. Ventricles of normal size. There is no mass effect or midline shift. There is no sign of intracranial hemorrhage. There is normal aeration of the mastoid sinuses. Calvarium is intact. The cervical vertebra have normal spacing and alignment. Posterior elements are intact. Facet joints appear normal. Soft tissues appear normal. IMPRESSION: Normal CT scan of the cervical spine. Normal CT scan of the brain. No change compared to old exam.
[2021-11-14 05:14] VITALS: BP 125/68; PULSE 91; RESP 16; TEMP 97.9
== END 2021-11-14 05:12 | disposition home or self-care (01) ==
LOC: EC 03:32
DX: S00.03XA Contusion of scalp, initial encounter (principal); K21.9 Gastro-esophageal reflux disease without esophagitis; J45.909 Unspecified asthma, uncomplicated; F41.9 Anxiety disorder, unspecified; F17.200 Nicotine dependence, unspecified, uncomplicated; F12.90 Cannabis use, unspecified, uncomplicated; Z79.51 Long term (current) use of inhaled steroids; Z79.899 Other long term (current) drug therapy; W01.0XXA Fall on same level from slipping, tripping and stumbling without subsequent striking against object, initial encounter
CPT/HCPCS: 70450; 72125; 99284

== ENCOUNTER 2022-07-07 21:45 | Emergency (ER) | payer OTHER ==
[2022-07-07 21:55] VITALS: BP 127/69; PULSE 90; RESP 18; TEMP 98.8
--- NOTE | 2022-07-07 22:35 | ED ---
General Adult HPI - General Chief complaint: Recheck/Abnormal Lab/Rx Stated complaint: Covid test Time Seen by Provider: 07/07/22 22:25 Source: patient, RN notes reviewed, old records reviewed Mode of arrival: ambulatory Limitations: no limitations - History of Present Illness Initial comments: 36-year-old male presents for Covid test after being exposed to a positive employee at work. He has no symptoms. Employer wanted him tested. He has not been vaccinated. He is a pack-a-day smoker. Severity scale (1-10): 0 Associated Symptoms: denies other symptoms Treatments Prior to Arrival: none - Related Data Home Medications Medication Instructions Recorded Confirmed Albuterol Inhaler [Ventolin Hfa 2 puff INHALATION RT-Q6H PRN 04/29/18 03/18/19 Inhaler] Beclomethasone Dipropionate [Qvar 2 puff INHALATION RT-BID 04/29/18 03/18/19 80 mcg] Divalproex Sodium [Depakote ER] 250 mg PO DAILY 04/29/18 03/18/19 Montelukast [Singulair] 10 mg PO DAILY 04/29/18 03/18/19 Omeprazole 20 mg PO BID 04/29/18 03/18/19 Previous Rx's Medication Instructions Recorded Loratadine [Claritin] 10 mg PO DAILY #10 tab 11/26/17 valACYclovir HCL [Valacyclovir] 1,000 mg PO Q12HR #20 tab 03/18/19 Allergies Allergy/AdvReac Type Severity Reaction Status Date / Time Penicillins Allergy Rash/Hives Verified 07/07/22 21:55 Review of Systems ROS Statement: Those systems with pertinent positive or pertinent negative responses have been documented in the HPI. ROS Other: All systems not noted in ROS Statement are negative. Past Medical History Past Medical History: Asthma, Chest Pain / Angina, GERD/Reflux Additional Past Medical History / Comment(s): migraines, History of Any Multi-Drug Resistant Organisms: None Reported Past Surgical History: No Surgical Hx Reported Additional Past Surgical History / Comment(s): WISDOM TEETH Past Anesthesia/Blood Transfusion Reactions: No Reported Reaction Past Psychological History: Anxiety Smoking Status: Current every day smoker Past Alcohol Use History: Occasional Past Drug Use History: Marijuana - Past Family History Mother Family Medical History: No Reported History General Exam Limitations: no limitations General appearance: alert, in no apparent distress Head exam: Present: atraumatic Eye exam: Absent: scleral icterus, conjunctival injection Respiratory exam: Present: normal lung sounds bilaterally. Absent: respiratory distress, wheezes, rales, rhonchi, stridor, chest wall tenderness, accessory muscle use Cardiovascular Exam: Present: regular rate Neurological exam: Present: alert, oriented X3, normal gait Psychiatric exam: Present: normal affect, normal mood Skin exam: Present: warm, dry, normal color. Absent: cyanosis, diaphoretic Course Vital Signs 07/07/22 21:53 Temperature 98.8 F Pulse Rate 90 Respiratory 18 Rate Blood Pressure 127/69 O2 Sat by Pulse 98 Oximetry Medical Decision Making - Medical Decision Making Patient presents for covid testing after exposure to co-worker. Test is negative. He denies any symptoms. Oxygen 98% on room air. Lungs sounds are clear to auscultation He was encouraged to take vitamin C, vitamin D and zinc daily. He was advised that if he becomes symptomatic, to wear a mask and self quarantine for 5 days from symptom onset. My attending is Dr Pineda - Lab Data Lab Results 07/07/22 Range/Units 21:57 Coronavirus (PCR) Not Detected (Not Detectd) Disposition Clinical Impression: Well adult Disposition: HOME SELF-CARE Condition: Good Instructions (If sedation given, give patient instructions): Face Coverings (Masks) and COVID-19 (ED) Additional Instructions: Today your coronavirus testing is negative. I do encourage you to take vitamin C, vitamin D and zinc to improve immune health. Always try to quit smoking as it is detrimental to your health Is patient prescribed a controlled substance at d/c from ED?: No Referrals: Anna Ocampo MD [Primary Care Provider] - 1-2 days Time of Disposition: 22:34
== END 2022-07-07 22:44 | disposition home or self-care (01) ==
LOC: EC 21:45
DX: Z00.00 Encounter for general adult medical examination without abnormal findings (principal); J45.909 Unspecified asthma, uncomplicated; K21.9 Gastro-esophageal reflux disease without esophagitis; F41.9 Anxiety disorder, unspecified; F17.200 Nicotine dependence, unspecified, uncomplicated; F12.90 Cannabis use, unspecified, uncomplicated; Z20.822 Contact with and (suspected) exposure to COVID-19; Z79.51 Long term (current) use of inhaled steroids; Z79.83 Long term (current) use of bisphosphonates; Z88.0 Allergy status to penicillin
CPT/HCPCS: 87635; 99283

== ENCOUNTER 2024-05-28 15:26 | Emergency (ER) | payer OTHER ==
[2024-05-28 15:39] VITALS: RESP 18
--- NOTE | 2024-05-28 16:13 | XR ---
EXAMINATION TYPE: XR ankle complete RT DATE OF EXAM: 05/28/2024 4:08 PM CLINICAL INDICATION: Male, 38 years old with history of pain; COMPARISON: 04/29/2018. TECHNIQUE: XR ankle complete RT; ankle is imaged in frontal, lateral and oblique projections. FINDINGS: There is no evidence of acute osseous pathology. No evidence of subluxation or dislocation. Kager's fat pad is intact. Mild soft tissue swelling around the ankle. No radiopaque foreign bodies are ident ified. Calcaneal Achilles enthesophyte. IMPRESSION: 1. No evidence of acute fracture. 2. Subcutaneous swelling around the ankle likely secondary to underlying soft tissue injury.
--- NOTE | 2024-05-28 16:58 | ED ---
Lower Extremity Injury HPI - General Chief Complaint: Extremity Injury, Lower Stated Complaint: R Ankle Injury Time Seen by Provider: 05/28/24 15:28 Source: patient, RN notes reviewed, old records reviewed Mode of arrival: EMS Limitations: physical limitation - History of Present Illness Initial Comments: This is a 38-year-old male to the ER for evaluation presents today for evaluation of right ankle pain fell down a flight of stairs at work complaining right ankle pain severe able to bear weight able to move right ankle no other traumatic injury noted MD Complaint: ankle injury, fall -: hour(s) Injury: Ankle: Right Type of Injury: blunt, inversion Place: home Severity: moderate Severity scale (1-10): 7 Worsens With: weight bearing Context: fall, direct blow Associated Symptoms: swelling Treatments Prior to Arrival: other (0) - Related Data Home Medications Medication Instructions Recorded Confirmed Albuterol Inhaler [Ventolin Hfa 2 puff INHALATION RT-Q6H PRN 04/29/18 03/18/19 Inhaler] Beclomethasone Dipropionate [Qvar 2 puff INHALATION RT-BID 04/29/18 03/18/19 80 mcg] Divalproex Sodium [Depakote ER] 250 mg PO DAILY 04/29/18 03/18/19 Montelukast [Singulair] 10 mg PO DAILY 04/29/18 03/18/19 Omeprazole 20 mg PO BID 04/29/18 03/18/19 Previous Rx's Medication Instructions Recorded Loratadine [Claritin] 10 mg PO DAILY #10 tab 11/26/17 valACYclovir HCL [Valacyclovir] 1,000 mg PO Q12HR #20 tab 03/18/19 Allergies Allergy/AdvReac Type Severity Reaction Status Date / Time Penicillins Allergy Rash/Hives Verified 05/28/24 15:39 Review of Systems ROS Statement: Those systems with pertinent positive or pertinent negative responses have been documented in the HPI. ROS Other: All systems not noted in ROS Statement are negative. Past Medical History Past Medical History: Asthma, Chest Pain / Angina, GERD/Reflux Additional Past Medical History / Comment(s): migraines, History of Any Multi-Drug Resistant Organisms: None Reported Past Surgical History: No Surgical Hx Reported Additional Past Surgical History / Comment(s): WISDOM TEETH Past Anesthesia/Blood Transfusion Reactions: No Reported Reaction Past Psychological History: Anxiety Smoking Status: Current every day smoker Past Alcohol Use History: Occasional Past Drug Use History: Marijuana - Past Family History Mother Family Medical History: No Reported History General Exam Limitations: physical limitation General appearance: alert, in no apparent distress Head exam: Present: atraumatic, normocephalic, normal inspection Eye exam: Present: normal appearance, PERRL, EOMI. Absent: scleral icterus, conjunctival injection, periorbital swelling ENT exam: Present: normal exam, mucous membranes moist Neck exam: Present: normal inspection. Absent: tenderness, meningismus, lymphadenopathy Respiratory exam: Present: normal lung sounds bilaterally. Absent: respiratory distress, wheezes, rales, rhonchi, stridor Cardiovascular Exam: Present: regular rate, normal rhythm, normal heart sounds. Absent: systolic murmur, diastolic murmur, rubs, gallop, clicks GI/Abdominal exam: Present: soft, normal bowel sounds. Absent: distended, tenderness, guarding, rebound, rigid Extremities exam: Present: normal inspection, full ROM, normal capillary refill. Absent: tenderness, pedal edema, joint swelling, calf tenderness Back exam: Present: normal inspection Neurological exam: Present: alert, oriented X3, CN II-XII intact Psychiatric exam: Present: normal affect, normal mood Skin exam: Present: warm, dry, intact, normal color. Absent: rash Course Vital Signs 05/28/24 05/28/24 15:34 17:27 Temperature 98.4 F 98.3 F Pulse Rate 90 88 Respiratory 18 18 Rate Blood Pressure 138/81 123/81 O2 Sat by Pulse 97 99 Oximetry - Reevaluation(s) Reevaluation #1: 05/28/24 16:57 Medical records reviewed Reevaluation #2: 05/28/24 16:57 Patient symptoms improved Reevaluation #3: 05/28/24 16:57 Patient informed of results questions answered Reevaluation #4: Was pt. sent in by a medical professional or institution (, PA, PEARL DIVER, urgent care, hospital, or jail...) When possible be specific @ -no Did you speak to anyone other than the patient for history (EMS, parent, family, police, friend...)? What history was obtained from this source @ -no Did you review nursing and triage notes (agree or disagree)? Why? @ -agree Are old charts reviewed (outside hosp., previous admission, EMS record, old EKG, old radiological studies, urgent care reports/EKG's, jail records)? Report findings @ -yes Differential Diagnosis (chest pain, altered mental status, abdominal pain women, abdominal pain men, vaginal bleeding, weakness, fever, dyspnea, syncope, headache, dizziness, GI bleed, back pain, seizure, CVA, palpatations, mental health, musculoskeletal)? @ -prior EKG interpreted by me (3pts min.). @ -no X-rays interpreted by me (1pt min.). @ -yes negative for acute disease CT interpreted by me (1pt min.). @ -no U/S interpreted by me (1pt. min.). @ -no What testing was considered but not performed or refused? (CT, X-rays, U/S, labs)? Why? @ -none What meds were considered but not given or refused? Why? @ -none Did you discuss the management of the patient with other professionals (professionals i.e. , PA, PEARL DIVER, lab, RT, psych nurse, social insurance adviser, textile cutting machine operator, teacher, soil science technical officer, supervisor case loading)? Give summary @ -no Was smoking cessation discussed for >3mins.? @ -no Was critical care preformed (if so, how long)? @ -no Were there social determinants of health that impacted care today? How? (Homelessness, low income, unemployed, alcoholism, drug addiction, transportation, low edu. Level, literacy, decrease access to med. care, halfway, rehab)? @ -none Was there de-escalation of care discussed even if they declined (Discuss DNR or withdrawal of care, Hospice)? DNR status @ -no What co-morbidities impacted this encounter? (DM, HTN, Smoking, COPD, CAD, Cancer, CVA, ARF, Chemo, Hep., AIDS, mental health diagnosis, sleep apnea, morbid obesity)? @ -none Was patient admitted / discharged? Hospital course, mention meds given and route, prescriptions, significant lab abnormalities, going to OR and other pertinent info. @ - 38 male to ER for evaluation of ankle pain sprain patient has severe right ankle sprain. Pain is improved here in the ER ankle is splinted patient can be discharged home Discharged right ankle sprain Undiagnosed new problem with uncertain prognosis? @ -no Drug Therapy requiring intensive monitoring for toxicity (Heparin, Nitro, Insulin, Cardizem)? @ -no Were any procedures done? @ -no Diagnosis/symptom? @ - Acute, or Chronic, or Acute on Chronic? @ -Acute Uncomplicated (without systemic symptoms) or Complicated (systemic symptoms)? @ -Complicated Side effects of treatment? @ -no Exacerbation, Progression, or Severe Exacerbation? @ -exacerbation Poses a threat to life or bodily function? How? (Chest pain, [place], CA, pneumonia, PE, COPD, DKA, ARF, appy, cholecystitis, CVA, Diverticulitis, Homicidal, Suicidal, threat to staff... and all critical care pts) @ -no Medical Decision Making - Medical Decision Making 38 male to ER for evaluation of ankle pain sprain patient has severe right ankle sprain. Pain is improved here in the ER ankle is splinted patient can be discharged home - Radiology Data Radiology results: report reviewed (Your ankle is negative for traumatic injury), image reviewed Disposition Clinical Impression: Right ankle sprain Disposition: HOME SELF-CARE Condition: Good Instructions (If sedation given, give patient instructions): Ankle Sprain (ED) Is patient prescribed a controlled substance at d/c from ED?: No Referrals: None,Stated [Primary Care Provider] - 1-2 days Time of Disposition: 17:00
[2024-05-28] MEDS: ACETAMINOPHEN TAB 500 MG TAB PO STA (17:14)
[2024-05-28] MEDS: IBUPROFEN 600 MG STARTER PACK 4 TAB BTL PO STA (17:15)
[2024-05-28] MEDS: IBUPROFEN 800 MG TAB PO STA (17:16)
[2024-05-28 17:29] VITALS: BP 123/81; PULSE 88; TEMP 98.3
== END 2024-05-28 17:27 | disposition home or self-care (01) ==
LOC: EC 15:26
DX: S93.401A Sprain of unspecified ligament of right ankle, initial encounter (principal); F17.200 Nicotine dependence, unspecified, uncomplicated; Z88.0 Allergy status to penicillin; W10.9XXA Fall (on) (from) unspecified stairs and steps, initial encounter
CPT/HCPCS: 99284

== ENCOUNTER → 2024-06-02 | Outpatient (CLI) | payer OTHER ==
--- NOTE | 2024-06-02 16:10 | XR ---
EXAMINATION TYPE: XR foot complete RT DATE OF EXAM: 06/02/2024 COMPARISON: 04/29/2018 HISTORY: 38-year-old male fall with ankle sprain, S93.601A RH FL XR SPINED ANKLE TECHNIQUE: 3 views FINDINGS: There is mild dorsal soft tissue swelling. Tiny posterior and plantar heel spurs. No acute fracture, subluxation, dislocation. IMPRESSION: Dorsal soft tissue swelling. No acute osseous abnormality seen. [facility], Workstation: [email or web address]OSPITALResolvyx PharmaceuticalsMARGO, 06/02/2024 4:08 PM
== END | disposition home or self-care (01) ==
LOC: RADXRMAIN 15:50
PROVIDERS: ATTEND Emergency Medicine
DX: S93.601A Unspecified sprain of right foot, initial encounter

== ENCOUNTER → 2024-06-09 | Outpatient (CLI) | payer OTHER ==
--- NOTE | 2024-06-09 23:19 | XR ---
EXAMINATION TYPE: XR foot complete RT DATE OF EXAM: 06/09/2024 COMPARISON: 06/02/2024 HISTORY: Pain falling down stairs TECHNIQUE: 3 view right foot FINDINGS: No acute fracture or dislocation evident. Joint spaces are preserved. Soft tissues are norm al. Examination appears stable from the recent comparison. IMPRESSION: 1. Acute osseous abnormality right foot. [facility], , 06/09/2024 11:16 PM
--- NOTE | 2024-06-09 23:20 | XR ---
EXAMINATION TYPE: XR ankle complete RT DATE OF EXAM: 06/09/2024 COMPARISON: 05/28/2024 HISTORY: Fall down stairs TECHNIQUE: 3 view right ankle FINDINGS: No acute or subacute fractures evident. Ankle mortise is intact. There is some mild soft ti ssue swelling persistent over the lateral malleolus. Small Achilles tendon calcaneal spur may be pres ent. Findings appears stable from the comparison. IMPRESSION: 1. Persistent mild soft tissue swelling lateral malleolus. 2. No acute or subacute osseous abnormality right ankle. [facility], , 06/09/2024 11:18 PM
== END | disposition home or self-care (01) ==
LOC: RADXRMAIN 16:43
PROVIDERS: ATTEND Emergency Medicine
DX: S93.401D Sprain of unspecified ligament of right ankle, subsequent encounter (principal); S93.601D Unspecified sprain of right foot, subsequent encounter; Q66.91 Congenital deformity of feet, unspecified, right foot; M77.30 Calcaneal spur, unspecified foot